=== PATIENT | female | born 1955 | race Caucasian/White ===

== ENCOUNTER 2020-12-18 20:40 | Observation (INO) | payer MEDICARE ==
--- NOTE | 2020-12-18 21:15 | EDM.PDOC ---
ED HPI GENERAL MEDICAL PROBLEM - General Chief Complaint: Lower Extremity Injury/Pain Stated Complaint: [facility] Time Seen by Provider: 12/18/20 21:00 Source of Information: Reports: Patient, EMS History Limitations: Reports: No Limitations - History of Present Illness INITIAL COMMENTS - FREE TEXT/NARRATIVE: 65-year-old female with a left leg injury. Her stumbled earlier this evening falling on top of her and landing on her left knee. She has been unable to bear weight since. No other injury Onset: Sudden (5 PM, 4 hours ago) Left Knee Pain Score (Numeric/FACES): 10 - Related Data Allergies Allergy/AdvReac Type Severity Reaction Status Date / Time No Known Allergies Allergy Verified 12/18/20 20:45 Home Meds: Home Meds DULoxetine HCl [Duloxetine HCl] 90 mg PO DAILY 12/18/20 [History] Hydroxychloroquine Sulfate [Plaquenil] 200 mg PO DAILY 12/18/20 [History] Methotrexate 200 mg PO Q7D 12/18/20 [History] Prazosin HCl [Prazosin] 4 mg PO BEDTIME 12/18/20 [History] Zolpidem [Ambien] 10 mg PO BEDTIME PRN 12/18/20 [History] buPROPion HCL [Bupropion Xl] 450 mg PO DAILY 12/18/20 [History] busPIRone HCl [busPIRone] 30 mg PO BID 12/18/20 [History] traMADol [Ultram] 50 mg PO TID PRN 12/18/20 [History] Past Medical History HEENT History: Reports: Hard of Hearing 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: , 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 Musculoskeletal History: Reports: Other (See Below) Other Musculoskeletal History: Inflammatory arthritis Psychiatric History: Reports: Anxiety, Depression Oncologic (Cancer) History: Reports: Squamous Cell Carcinoma - Past Surgical History Female Surgical History: Reports: Section Musculoskeletal Surgical History: Reports: Other (See Below) Other Musculoskeletal Surgeries/Procedures:: titianum joints x3 in l fingers Dermatological Surgical History: Reports: Skin Biopsy Social & Family History - Tobacco Use Tobacco Use Status *Q: Never Tobacco User Second Hand Smoke Exposure: No - Caffeine Use Caffeine Use: Reports: Coffee - Recreational Drug Use Recreational Drug Use: No Review of Systems - Review of Systems Review Of Systems: See Below Constitutional: Denies: Fever Respiratory: Denies: Shortness of Breath Cardiovascular: Denies: Chest Pain GI/Abdominal: Denies: Abdominal Pain, Nausea, Vomiting Musculoskeletal: Reports: Leg Pain Skin: Denies: Bruising Neurological: Denies: Paresthesia ED EXAM, GENERAL - Physical Exam Exam: See Below Exam Limited By: No Limitations General Appearance: Alert, No Apparent Distress (Looks uncomfortable but not distressed) Head: Atraumatic Neck: Supple, Non-Tender Respiratory/Chest: No Respiratory Distress Extremities: Other (Exam is otherwise limited to the left lower leg. The hip is nontender, ankle is nontender. She has some palpation tenderness in the mid femur and exquisite tenderness to palpation over the lateral aspect of the knee. There is no deformity or significant bruising or swelling.) Course - Vital Signs Last Recorded V/S: Last Vital Signs Temp 95 F L 12/18/20 23:33 Pulse 70 12/18/20 23:33 Resp 18 12/18/20 23:33 BP 135/61 12/18/20 23:33 Pulse Ox 93 L 12/18/20 23:33 - Orders/Labs/Meds Orders: Active Orders 24 hr Category Date Time Status Femur Min 2V Lt [CR] Stat Exams 12/18/20 21:09 Taken Knee 3V Lt [CR] Stat Exams 12/18/20 21:09 Taken Medication Orders Acetaminophen (Acetaminophen 325 Mg Tab) 650 mg PO Q4H PRN PRN Reason: Pain (Mild 1-3)/fever Albuterol (Albuterol 0.083% 2.5 Mg/3 Ml Neb Soln) 2.5 mg NEB Q4H PRN PRN Reason: Shortness Of Breath/wheezing Bupropion HCl (Bupropion 150 Mg Tab.Er) 450 mg PO DAILY TAIWO Buspirone HCl (Buspirone 10 Mg Tab) 30 mg PO BID [facility] Last Admin: 12/19/20 00:19 Dose: Not Given Documented by: BEE Docusate Sodium (Docusate Sodium 100 Mg Cap) 100 mg PO BID PRN PRN Reason: Constipation Duloxetine HCl (Duloxetine 30 Mg Cap) 90 mg PO DAILY TAIWO Hydromorphone HCl (Hydromorphone 1 Mg/Ml Syringe) 1 mg IVPUSH Q3H PRN PRN Reason: Pain (severe 7-10) Hydroxychloroquine Sulfate (Hydroxychloroquine 200 Mg Tab) 200 mg PO DAILY TAIWO Sodium Chloride (Normal Saline) 1,000 mls @ 125 mls/hr IV ASDIRECTED TAIWO Ondansetron HCl (Ondansetron 4 Mg Tab.Dis) 4 mg PO Q6H PRN PRN Reason: Nausea able to take PO Ondansetron HCl (Ondansetron 4 Mg/2 Ml Sdv) 4 mg IV Q4H PRN PRN Reason: Nausea/Vomiting Oxycodone HCl (Oxycodone 5 Mg Tab) 5 mg PO Q4H PRN PRN Reason: Pain (moderate 4-6) Prazosin HCl (Prazosin 1 Mg Cap) 4 mg PO BEDTIME TAIWO Meds: Medications Generic Name Dose Route Start Last Admin Trade Name Freq PRN Reason Stop Dose Admin Acetaminophen 650 mg 12/18/20 23:45 Acetaminophen 325 Mg Tab PO Q4H PRN Pain (Mild 1-3)/fever Albuterol 2.5 mg 12/18/20 23:45 Albuterol 0.083% 2.5 Mg/3 Ml Neb Soln NEB Q4H PRN Shortness Of Breath/wheezing Bupropion HCl 450 mg 12/19/20 09:00 Bupropion 150 Mg Tab.Er PO DAILY [facility] Buspirone HCl 30 mg 12/18/20 23:45 12/19/20 00:19 Buspirone 10 Mg Tab PO Not Given BID TAIWO Docusate Sodium 100 mg 12/18/20 23:45 Docusate Sodium 100 Mg Cap PO BID PRN Constipation Duloxetine HCl 90 mg 12/19/20 09:00 Duloxetine 30 Mg Cap PO DAILY [facility] Hydromorphone HCl 1 mg 12/18/20 23:45 Hydromorphone 1 Mg/Ml Syringe IVPUSH Q3H PRN Pain (severe 7-10) Hydroxychloroquine Sulfate 200 mg 12/19/20 09:00 Hydroxychloroquine 200 Mg Tab PO DAILY [facility] Sodium Chloride 1,000 mls @ 125 mls/hr 12/18/20 23:45 Normal Saline IV ASDIRECTED TAIWO Ondansetron HCl 4 mg 12/18/20 23:45 Ondansetron 4 Mg Tab.Dis PO Q6H PRN Nausea able to take PO Ondansetron HCl 4 mg 12/18/20 23:45 Ondansetron 4 Mg/2 Ml Sdv IV Q4H PRN Nausea/Vomiting Oxycodone HCl 5 mg 12/18/20 23:45 Oxycodone 5 Mg Tab PO Q4H PRN Pain (moderate 4-6) Prazosin HCl 4 mg 12/19/20 21:00 Prazosin 1 Mg Cap PO BEDTIME TAIWO Discontinued Medications Generic Name Dose Route Start Last Admin Trade Name Freq PRN Reason Stop Dose Admin Hydromorphone HCl 0.5 mg 12/18/20 21:19 12/18/20 21:25 Hydromorphone 0.5 Mg/0.5 Ml Syringe IVPUSH 12/18/20 21:20 0.5 mg ONETIME ONE Administration Hydromorphone HCl 1 mg 12/18/20 22:31 12/18/20 22:38 Hydromorphone 1 Mg/Ml Syringe IVPUSH 12/18/20 22:32 1 mg ONETIME ONE Administration Pantoprazole Sodium 40 mg 12/18/20 23:45 Pantoprazole 40 Mg Vial IV 12/18/20 23:46 ONETIME ONE - Re-Assessments/Exams Free Text/Narrative Re-Assessment/Exam: 12/18/20 21:29 An x-ray of the left knee and left femur were obtained. 12/18/20 22:05 X-ray shows a likely diagonal fracture of the lateral tibia extending into the tibial plateau. She cannot move her knee, she cannot bear weight. After discussing this with orthopedics, it was recommended she be admitted and have further evaluation tomorrow with a CT scan and a physical therapy consult the surgery is not indicated. Areli Azul agreed to admit the patient. Departure - Departure Time of Disposition: 23:49 Disposition: Admitted As Inpatient 64 Clinical Impression: Fracture of tibial plateau - Discharge Information Sepsis Event Note (ED) - Evaluation Sepsis Screening Result: No Definite Risk - Focused Exam Vital Signs: Vital Signs Temp Pulse Resp BP Pulse Ox 12/18/20 22:30 97.2 F 64 16 156/62 H 95 12/18/20 21:02 97.1 F 65 16 158/69 H 95 12/18/20 20:42 97.1 F 65 16 158/69 H 95 - My Orders Last 24 Hours: My Active Orders 12/18/20 21:09 Femur Min 2V Lt [CR] Stat Knee 3V Lt [CR] Stat - Assessment/Plan Last 24 Hours: My Active Orders 12/18/20 21:09 Femur Min 2V Lt [CR] Stat Knee 3V Lt [CR] Stat
[2020-12-18] MEDS ORDERED: HYDROmorphone 0.5 MG/0.5 ML Syringe IVPUSH ONE (21:19)
[2020-12-18] MEDS ORDERED: HYDROmorphone 1 MG/ML Syringe IVPUSH ONE (22:31)
--- NOTE | 2020-12-18 23:37 | PCM.HP.2 ---
H&P History of Present Illness - General Date of Service: 12/18/20 Admit Problem/Dx: Admission Diagnosis/Problem Admission Diagnosis/Problem Fracture of left tibial plateau Source of Information: Patient, Provider, RN History Limitations: Reports: No Limitations - History of Present Illness Initial Comments - Free Text/Narative: chief complaint: left leg pain secondary to fracture This is a 65 year old female at 5 pm today, her disabled fell on her injuring her left leg. Has been unable to bear wt due to pain, call EMS for transport to hospital. Xray shows a left tib plateau fracture. consult with Orthopedic Surgeon, recommends admission to hospital will consult in am. Onset of Symptoms: Reports: Today Symptom Onset Date: 12/18/20 Symptom Onset Time: 17:00 Duration of Symptoms: Reports: Constant Location: Reports: Lower Extremity, Left Quality: Reports: Pressure, Sharp Severity: Severe Improves with: Reports: Immobilization Worsens with: Reports: Movement Context: Reports: Other (another person falling on patieint) Left Knee Pain Score (Numeric/FACES): 8 - Related Data Allergies/Adverse Reactions: Allergies Allergy/AdvReac Type Severity Reaction Status Date / Time No Known Allergies Allergy Verified 12/18/20 20:45 Home Medications: Home Meds DULoxetine HCl [Duloxetine HCl] 90 mg PO DAILY 12/18/20 [History] Hydroxychloroquine Sulfate [Plaquenil] 200 mg PO DAILY 12/18/20 [History] Methotrexate 200 mg PO Q7D 12/18/20 [History] Prazosin HCl [Prazosin] 4 mg PO BEDTIME 12/18/20 [History] Zolpidem [Ambien] 10 mg PO BEDTIME PRN 12/18/20 [History] buPROPion HCL [Bupropion Xl] 450 mg PO DAILY 12/18/20 [History] busPIRone HCl [busPIRone] 30 mg PO BID 12/18/20 [History] traMADol [Ultram] 50 mg PO TID PRN 12/18/20 [History] Past Medical History HEENT History: Reports: Hard of Hearing 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: , 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 Musculoskeletal History: Reports: Other (See Below) Other Musculoskeletal History: Inflammatory arthritis Psychiatric History: Reports: Anxiety, Depression Oncologic (Cancer) History: Reports: Squamous Cell Carcinoma - Past Surgical History Female Surgical History: Reports: Section Musculoskeletal Surgical History: Reports: Other (See Below) Other Musculoskeletal Surgeries/Procedures:: titianum joints x3 in l fingers Dermatological Surgical History: Reports: Skin Biopsy Social & Family History - Tobacco Use Tobacco Use Status *Q: Never Tobacco User Second Hand Smoke Exposure: No - Caffeine Use Caffeine Use: Reports: Coffee - Recreational Drug Use Recreational Drug Use: No - Living Situation & Occupation Living situation: Reports: Occupation: Employed H&P Review of Systems - Review of Systems: Review Of Systems: See Below General: Reports: Other (left leg pain) HEENT: Reports: No Symptoms Pulmonary: Reports: No Symptoms Cardiovascular: Reports: No Symptoms Gastrointestinal: Reports: No Symptoms Genitourinary: Reports: No Symptoms Musculoskeletal: Reports: Leg Pain Skin: Reports: No Symptoms Psychiatric: Reports: No Symptoms Neurological: Reports: No Symptoms Hematologic/Lymphatic: Reports: No Symptoms Immunologic: Reports: No Symptoms Exam - Exam Exam: See Below - Vital Signs Vital Signs: Last Vital Signs Temp 36.2 C 12/18/20 22:30 Pulse 64 12/18/20 22:30 Resp 16 12/18/20 22:30 BP 156/62 H 12/18/20 22:30 Pulse Ox 95 12/18/20 22:30 Weight: 71.668 kg - Exam General: Alert, Oriented, Cooperative, Moderate Distress HEENT: PERRLA, Hearing Intact, Mucosa Moist & [place], Nares Patent, Normal Nasal Septum, Posterior Pharynx Clear, Conjunctiva Clear, EOMI, EACs Clear, TMs Clear Neck: Supple, Trachea Midline, 2 Lungs: Clear to Auscultation, Normal Respiratory Effort Cardiovascular: Regular Rate, Regular Rhythm GI/Abdominal Exam: Normal Bowel Sounds, Soft, Non-Tender, No Organomegaly, No Distention, No Abnormal Bruit, No Mass, Pelvis Stable (Female) Exam: Deferred Rectal (Female) Exam: Deferred Back Exam: Normal Inspection, Full Range of Motion, NT Extremities: Leg Pain Peripheral Pulses: 2+: Radial (L), Radial (R), Dorsalis Pedis (L), Dorsalis Pedis (R) Skin: Warm, Dry, Intact Neurological: Cranial Nerves Intact, Normal Speech, Normal Tone Neuro Extensive - Mental Status: Alert, Oriented x3, Normal Mood/Affect, Normal Cognition, Memory Intact Neuro Extensive - Motor, Sensory, Reflexes: CN II-XII Intact Psychiatric: Alert, Normal Affect, Normal Mood Sepsis Event Note - Evaluation Sepsis Screening Result: No Definite Risk - Focused Exam Vital Signs: Vital Signs Temp Pulse Resp BP Pulse Ox 12/18/20 22:30 36.2 C 64 16 156/62 H 95 12/18/20 21:02 36.2 C 65 16 158/69 H 95 12/18/20 20:42 36.2 C 65 16 158/69 H 95 - Problem List (1) Fracture of tibial plateau SNOMED Code(s): 672005949 ICD Code: S82.143A - DISPLACED BICONDYLAR FRACTURE OF UNSP TIBIA, INIT Status: Acute Priority: High Current Visit: Yes Problem List Initiated/Reviewed/Updated: Yes Orders Last 24hrs: Active Orders 24 hr Category Date Time Status Patient Status Manage Transfer [TRANSFER] Routine ADT 12/18/20 22:34 Active Femur Min 2V Lt [CR] Stat Exams 12/18/20 21:09 Taken Knee 3V Lt [CR] Stat Exams 12/18/20 21:09 Taken Resuscitation Status Routine Resus Stat 12/18/20 22:37 Ordered Assessment/Plan Comment:: ASSESSMENT AND PLAN This is a 65 year old female at 5 pm today, her disabled fell on her injuring her left leg. Has been unable to bear wt due to pain, call EMS for transport to hospital. Xray shows a left tib plateau fracture. consult with Orthopedic Surgeon, recommends admission to hospital will consult in am. Left Tibial plateau fracture -IV fluids Normal Saline 125ml/hr -IV Dilaudid 1 mg every 3 hours prn pain -Percocet 5mg po every 4 hours prn pain -pulse oximetry -consult to Dr. Casas for Orthopedic evaluation in am MAINTENANCE ISSUES -DVT prophylaxis; scd -GI prophylaxis; Protonix 40 mg IV one time -Rosario catheter; not indicated -Nutrition; regular diet then NPO after midnight -Nicotine dependence; not required CODE STATUS-FULL ADMISSION STATUS-this patient will be admitted to observation status, expect no more than a one night hospital stay for evaluation and management of problems as outlined above. DISPOSITION-anticipate discharge to home after the hospital stay. PRIMARY CARE PROVIDER-[facility] HOSPITALIST- Dr. Rivas - Mortality Measure Prognosis:: Good
[2020-12-18] MEDS ORDERED: Albuterol 0.083% 2.5 MG/3 ML Neb Soln NEB PRN (23:45)
[2020-12-18] MEDS ORDERED: Docusate Sodium 100 MG Cap PO PRN (23:45)
[2020-12-18] MEDS ORDERED: HYDROmorphone 1 MG/ML Syringe IVPUSH PRN (23:45)
[2020-12-18] MEDS ORDERED: Pantoprazole 40 MG Vial IV ONE (23:45)
[2020-12-19] MEDS: busPIRone 10 MG Tab PO SCH ×3 (00:19→21:07)
[2020-12-19] MEDS: Sodium Chloride 0.9% 1,000 ML IV SCH ×3 (00:24→16:57)
[2020-12-19] MEDS: oxyCODONE 5 MG Tab PO PRN ×6 (00:24→21:06)
[2020-12-19] MEDS: Acetaminophen 325 MG Tab PO PRN ×3 (00:24→21:06)
[2020-12-19] MEDS: Ondansetron 4 MG/2 ML SDV IV PRN (00:24)
[2020-12-19] MEDS: fentaNYL 100 MCG/2 ML SDV IVPUSH PRN ×2 (08:00→11:38)
--- NOTE | 2020-12-19 08:50 | CR ---
Femur Min 2V Lt, Knee 3V Lt CLINICAL HISTORY: Fall, pain FINDINGS: There is no acute fracture within the femur. No destructive changes are seen. IMPRESSION: Negative. Knee 3V Lt CLINICAL HISTORY: Fall, pain FINDINGS: There is a joint effusion. There is some irregular density in the lateral tibial plateau which may represent a slight impaction fracture. IMPRESSION: Nondisplaced impaction fracture of the lateral tibial plateau suggested Joint fluid may represent hemarthrosis.
[2020-12-19] MEDS: buPROPion 150 MG Tab.ER PO SCH (09:25)
[2020-12-19] MEDS: Hydroxychloroquine 200 MG Tab PO SCH (09:25)
[2020-12-19] MEDS: DULoxetine 30 MG Cap PO SCH (09:25)
--- NOTE | 2020-12-19 10:54 | CT ---
Lower Extremity wo Cont Lt CLINICAL HISTORY: Tibial fracture TECHNIQUE: Thin section axial images were obtained from the femoral condyles downward through the talus without IV contrast enhancement. Coronal and sagittal images were reconstructed. Auto dosage reduction and iterative reconstruction techniques employed. FINDINGS: There is a nondisplaced comminuted oblique fracture extending from the posterior lateral tibial plateau to the intercondylar eminence. There is some joint fluid but the upper knee is off the image margin. The fibula appears intact. Tibiotalar joint appears intact. IMPRESSION: Comminuted nondisplaced oblique fracture through the lateral tibial plateau extending to the intercondylar eminence.
[2020-12-19] MEDS ORDERED: Zolpidem 5 MG Tab PO PRN (11:00)
--- NOTE | 2020-12-19 11:08 | PCM.CONS ---
H&P History of Present Illness - General Date of Service: 12/19/20 Admit Problem/Dx: Admission Diagnosis/Problem Admission Diagnosis/Problem Fracture of left tibial plateau Source of Information: Patient, Provider History Limitations: Reports: No Limitations - History of Present Illness Initial Comments - Free Text/Narative: 65 year old female admitted through the ED with left knee pain. She reports her tripped and fell onto her left leg. She has been unable to weight bear on the leg since that time. No other injuries were sustained. Onset of Symptoms: Reports: Sudden Duration of Symptoms: Reports: Constant Location: Reports: Lower Extremity, Left Quality: Reports: Sharp, Stabbing Severity: Severe Improves with: Reports: Immobilization Worsens with: Reports: Movement Context: Reports: Trauma Associated Symptoms: Reports: No Other Symptoms Left Knee Pain Score (Numeric/FACES): 6 - Related Data Allergies/Adverse Reactions: Allergies Allergy/AdvReac Type Severity Reaction Status Date / Time No Known Allergies Allergy Verified 12/18/20 20:45 Home Medications: Home Meds DULoxetine HCl [Duloxetine HCl] 90 mg PO DAILY 12/18/20 [History] Hydroxychloroquine Sulfate [Plaquenil] 200 mg PO DAILY 12/18/20 [History] Methotrexate 200 mg PO Q7D 12/18/20 [History] Prazosin HCl [Prazosin] 4 mg PO BEDTIME 12/18/20 [History] Zolpidem [Ambien] 10 mg PO BEDTIME PRN 12/18/20 [History] buPROPion HCL [Bupropion Xl] 450 mg PO DAILY 12/18/20 [History] busPIRone HCl [busPIRone] 30 mg PO BID 12/18/20 [History] traMADol [Ultram] 50 mg PO TID PRN 12/18/20 [History] Past Medical History HEENT History: Reports: Hard of Hearing 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: , 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 Musculoskeletal History: Reports: Fracture, Other (See Below) Other Musculoskeletal History: Inflammatory arthritis Psychiatric History: Reports: Anxiety, Depression Oncologic (Cancer) History: Reports: Squamous Cell Carcinoma - Past Surgical History HEENT Surgical History: Reports: None Female Surgical History: Reports: Section Musculoskeletal Surgical History: Reports: Other (See Below) Other Musculoskeletal Surgeries/Procedures:: titianum joints x3 in l fingers Dermatological Surgical History: Reports: Skin Biopsy Social & Family History - Tobacco Use Tobacco Use Status *Q: Never Tobacco User Second Hand Smoke Exposure: No - Caffeine Use Caffeine Use: Reports: Coffee - Recreational Drug Use Recreational Drug Use: No - Living Situation & Occupation Living situation: Reports: Occupation: Employed H&P Review of Systems - Review of Systems: Review Of Systems: See Below General: Reports: No Symptoms Musculoskeletal: Reports: Leg Pain Skin: Reports: No Symptoms Neurological: Reports: No Symptoms Exam - Exam Exam: See Below - Vital Signs Vital Signs: Last Vital Signs Temp 36.3 C 12/19/20 07:15 Pulse 69 12/19/20 07:15 Resp 16 12/19/20 07:15 BP 108/51 L 12/19/20 07:15 Pulse Ox 96 12/19/20 07:15 Weight: 73.028 kg - Exam General: Alert, Oriented Extremities: Joint Swelling, Leg Pain, Limited Range of Motion, Other (Pain with attempted ROM of left knee) - Patient Data Lab Results Last 24 hrs: Laboratory Results - last 24 hr 12/19/20 12/19/20 Range/Units 04:15 04:15 WBC 7.6 (4.5-11.0) K/uL RBC 4.02 (3.30-5.50) M/uL Hgb 11.8 L (12.0-15.0) g/dL Hct 36.9 (36.0-48.0) % MCV 92 (80-98) fL MCH 29 (27-31) pg MCHC 32 (32-36) % Plt Count 163 (150-400) K/uL Neut % (Auto) 83 H (36-66) % Lymph % (Auto) 9 L (24-44) % [place] % (Auto) 8 H (2-6) % Eos % (Auto) 0 L (2-4) % Baso % (Auto) 0 (0-1) % Sodium 141 (140-148) mmol/L Potassium 4.1 (3.6-5.2) mmol/L Chloride 105 (100-108) mmol/L Carbon Dioxide 26 (21-32) mmol/L Anion Gap 10.4 (5.0-14.0) mmol/L BUN 13 (7-18) mg/dL Creatinine 0.7 (0.6-1.0) mg/dL Est Cr Clr Drug Dosing 61.68 mL/min Estimated GFR (MDRD) > 60 (>60) Glucose 126 H (74-106) mg/dL Calcium 8.4 L (8.5-10.1) mg/dL Result Diagrams: 12/19/20 04:15 12/19/20 04:15 Sepsis Event Note - Evaluation Sepsis Screening Result: No Definite Risk - Focused Exam Vital Signs: Vital Signs Temp Pulse Resp BP BP Pulse Ox 12/19/20 07:15 36.3 C 69 16 108/51 L 96 12/19/20 07:04 96 12/19/20 02:10 90 L 12/19/20 01:54 35.4 C L 67 16 116/66 93 L 12/19/20 00:24 135/61 12/18/20 23:33 35 C L 70 18 135/61 93 L Consult PN Assessment/Plan (1) Closed nondisplaced fracture of left tibial plateau SNOMED Code(s): 888648837, [id number] Code(s): S82.145A - NONDISPLACED BICONDYLAR FRACTURE OF LEFT TIBIA, INIT Current Visit: Yes Qualifiers: Encounter type: initial encounter Qualified Code(s): S82.145A - Nondisplaced bicondylar fracture of left tibia, initial encounter for closed fracture Problem List Initiated/Reviewed/Updated: Yes My Orders Last 24 Hours: My Active Orders 12/19/20 10:58 Ambulate [RC] QID Up to Chair [RC] QID Ice Therapy [OM.PC] Per Unit Routine 12/19/20 10:59 PT Evaluation and Treatment [CONS] Routine 12/19/20 11:00 Zolpidem [Ambien] 10 mg PO BEDTIME PRN 12/19/20 Lunch Regular Diet [DIET] Plan: Nondisplaced fracture of left tibial plateau. No surgery indicated. She will have be minimally weight bearing on the left and currently has limited mobility. PT to see for attempt at ambulation. Will get her into a hinged knee brace and see what else she may need for home, e.g. walker, wheelchair, etc. Anticipate her going home in next day or so.
--- NOTE | 2020-12-19 12:44 | PCM.PN ---
- General Info Date of Service: 12/19/20 Admission Dx/Problem (Free Text): Admission Diagnosis/Problem Admission Diagnosis/Problem Fracture of left tibial plateau Subjective Update: Patient reports pain of her left lower extremity is reasonably well controlled at rest. Orthopedics has evaluated and no surgery is indicated. The patient will be placed in a hinged knee brace with PT evaluation for recommendations regarding mobility. The patient does want to return home if possible long hospitalization. Functional Status: Reports: Pain Controlled - Review of Systems General: Reports: No Symptoms HEENT: Reports: No Symptoms Pulmonary: Reports: No Symptoms Cardiovascular: Reports: No Symptoms Gastrointestinal: Reports: No Symptoms Genitourinary: Reports: No Symptoms Musculoskeletal: Reports: Leg Pain Skin: Reports: No Symptoms Neurological: Reports: No Symptoms Psychiatric: Reports: No Symptoms - Patient Data Vitals - Most Recent: Last Vital Signs Temp 97.0 F 12/19/20 11:20 Pulse 65 12/19/20 11:20 Resp 18 12/19/20 11:20 BP 113/50 L 12/19/20 11:20 Pulse Ox 92 L 12/19/20 11:20 Weight - Most Recent: 161 lb I&O - Last 24 Hours: Intake & Output 12/18/20 12/19/20 12/19/20 22:59 06:59 14:59 Output Total 700 Balance -700 Lab Results Last 24 Hours: Laboratory Results - last 24 hr 12/19/20 12/19/20 Range/Units 04:15 04:15 WBC 7.6 (4.5-11.0) K/uL RBC 4.02 (3.30-5.50) M/uL Hgb 11.8 L (12.0-15.0) g/dL Hct 36.9 (36.0-48.0) % MCV 92 (80-98) fL MCH 29 (27-31) pg MCHC 32 (32-36) % Plt Count 163 (150-400) K/uL Neut % (Auto) 83 H (36-66) % Lymph % (Auto) 9 L (24-44) % [place] % (Auto) 8 H (2-6) % Eos % (Auto) 0 L (2-4) % Baso % (Auto) 0 (0-1) % Sodium 141 (140-148) mmol/L Potassium 4.1 (3.6-5.2) mmol/L Chloride 105 (100-108) mmol/L Carbon Dioxide 26 (21-32) mmol/L Anion Gap 10.4 (5.0-14.0) mmol/L BUN 13 (7-18) mg/dL Creatinine 0.7 (0.6-1.0) mg/dL Est Cr Clr Drug Dosing 61.68 mL/min Estimated GFR (MDRD) > 60 (>60) Glucose 126 H (74-106) mg/dL Calcium 8.4 L (8.5-10.1) mg/dL Med Orders - Current: Current Medications Acetaminophen (Acetaminophen 325 Mg Tab) 650 mg PO Q4H PRN PRN Reason: Pain (Mild 1-3)/fever Last Admin: 12/19/20 06:34 Dose: 650 mg Documented by: Albuterol (Albuterol 0.083% 2.5 Mg/3 Ml Neb Soln) 2.5 mg NEB Q4H PRN PRN Reason: Shortness Of Breath/wheezing Bupropion HCl (Bupropion 150 Mg Tab.Er) 450 mg PO DAILY [facility] Last Admin: 12/19/20 09:25 Dose: Not Given Documented by: Buspirone HCl (Buspirone 10 Mg Tab) 30 mg PO BID [facility] Last Admin: 12/19/20 09:25 Dose: Not Given Documented by: Docusate Sodium (Docusate Sodium 100 Mg Cap) 100 mg PO BID PRN PRN Reason: Constipation Duloxetine HCl (Duloxetine 30 Mg Cap) 90 mg PO DAILY [facility] Last Admin: 12/19/20 09:25 Dose: Not Given Documented by: Fentanyl (Fentanyl 100 Mcg/2 Ml Sdv) 50 mcg IVPUSH Q4H PRN PRN Reason: Pain (severe 7-10) Last Admin: 12/19/20 11:38 Dose: 50 mcg Documented by: Hydromorphone HCl (Hydromorphone 1 Mg/Ml Syringe) 1 mg IVPUSH Q3H PRN PRN Reason: Pain (severe 7-10) Hydroxychloroquine Sulfate (Hydroxychloroquine 200 Mg Tab) 200 mg PO DAILY [facility] Last Admin: 12/19/20 09:25 Dose: Not Given Documented by: Sodium Chloride (Normal Saline) 1,000 mls @ 125 mls/hr IV ASDIRECTED [facility] Last Admin: 12/19/20 07:59 Dose: 125 mls/hr Documented by: Ondansetron HCl (Ondansetron 4 Mg Tab.Dis) 4 mg PO Q6H PRN PRN Reason: Nausea able to take PO Ondansetron HCl (Ondansetron 4 Mg/2 Ml Sdv) 4 mg IV Q4H PRN PRN Reason: Nausea/Vomiting Last Admin: 12/19/20 00:24 Dose: 4 mg Documented by: Oxycodone HCl (Oxycodone 5 Mg Tab) 5 mg PO Q4H PRN PRN Reason: Pain (moderate 4-6) Last Admin: 12/19/20 06:34 Dose: 5 mg Documented by: Prazosin 2mg Cap ( (Ptom)) 0 each PO BEDTIME [facility] Zolpidem Tartrate (Zolpidem 5 Mg Tab) 10 mg PO BEDTIME PRN PRN Reason: Insomnia Discontinued Medications Hydromorphone HCl (Hydromorphone 0.5 Mg/0.5 Ml Syringe) 0.5 mg IVPUSH ONETIME ONE Stop: 12/18/20 21:20 Last Admin: 12/18/20 21:25 Dose: 0.5 mg Documented by: Hydromorphone HCl (Hydromorphone 1 Mg/Ml Syringe) 1 mg IVPUSH ONETIME ONE Stop: 12/18/20 22:32 Last Admin: 12/18/20 22:38 Dose: 1 mg Documented by: Pantoprazole Sodium (Pantoprazole 40 Mg Vial) 40 mg IV ONETIME ONE Stop: 12/18/20 23:46 Last Admin: 12/19/20 00:24 Dose: 40 mg Documented by: Prazosin HCl (Prazosin 1 Mg Cap) 4 mg PO BEDTIME [facility] Last Admin: 12/19/20 00:24 Dose: 4 mg Documented by: - Exam General: Alert, Oriented, Cooperative HEENT: No: Scleral Icterus Neck: Supple, Trachea Midline Lungs: Clear to Auscultation Cardiovascular: Regular Rate GI/Abdominal Exam: Soft, Non-Tender Extremities: Leg Pain Skin: Warm, Dry Neurological: No New Focal Deficit Psy/Mental Status: Alert, Normal Affect, Normal Mood - Patient Data Lab Results Last 24 hrs: Laboratory Results - last 24 hr 12/19/20 12/19/20 Range/Units 04:15 04:15 WBC 7.6 (4.5-11.0) K/uL RBC 4.02 (3.30-5.50) M/uL Hgb 11.8 L (12.0-15.0) g/dL Hct 36.9 (36.0-48.0) % MCV 92 (80-98) fL MCH 29 (27-31) pg MCHC 32 (32-36) % Plt Count 163 (150-400) K/uL Neut % (Auto) 83 H (36-66) % Lymph % (Auto) 9 L (24-44) % [place] % (Auto) 8 H (2-6) % Eos % (Auto) 0 L (2-4) % Baso % (Auto) 0 (0-1) % Sodium 141 (140-148) mmol/L Potassium 4.1 (3.6-5.2) mmol/L Chloride 105 (100-108) mmol/L Carbon Dioxide 26 (21-32) mmol/L Anion Gap 10.4 (5.0-14.0) mmol/L BUN 13 (7-18) mg/dL Creatinine 0.7 (0.6-1.0) mg/dL Est Cr Clr Drug Dosing 61.68 mL/min Estimated GFR (MDRD) > 60 (>60) Glucose 126 H (74-106) mg/dL Calcium 8.4 L (8.5-10.1) mg/dL Result Diagrams: 12/19/20 04:15 12/19/20 04:15 Sepsis Event Note - Evaluation Sepsis Screening Result: No Definite Risk - Focused Exam Vital Signs: Vital Signs Temp Pulse Resp BP Pulse Ox 12/19/20 11:20 97.0 F 65 18 113/50 L 92 L 12/19/20 07:15 97.4 F 69 16 108/51 L 96 12/19/20 07:04 96 12/19/20 02:10 90 L 12/19/20 01:54 95.7 F L 67 16 116/66 93 L - Problem List Review Problem List Initiated/Reviewed/Updated: Yes - Assessment Assessment:: Left tibial plateau fracture - Plan Plan:: LEFT TIBIAL PLATEAU FRACTURE CT confirms comminuted oblique nondisplaced left tibial plateau fracture Advance diet as tolerated is no surgery is indicated Fentanyl if needed for pain. Requested oral pain medications that the patient may be able to continue at home. DVT PROPHYLAXIS Continue activity as tolerated DISPOSITION-continue observation today. Per orthopedics, presume patient will likely be ready for discharge in the next day or so [facility]
[2020-12-19] MEDS ORDERED: Prazosin 1 MG Cap PO SCH (21:00)
[2020-12-19] MEDS: PRAZOSIN 2 MG PO SCH (21:07)
[2020-12-20] MEDS: Acetaminophen 325 MG Tab PO PRN ×3 (00:59→13:24)
[2020-12-20] MEDS: oxyCODONE 5 MG Tab PO PRN ×4 (00:59→20:07)
[2020-12-20] MEDS: Sodium Chloride 0.9% 1,000 ML IV SCH (01:00)
[2020-12-20] MEDS: Hydroxychloroquine 200 MG Tab PO SCH (10:55)
[2020-12-20] MEDS: DULoxetine 30 MG Cap PO SCH ×2 (10:55→16:38)
[2020-12-20] MEDS: buPROPion 150 MG Tab.ER PO SCH ×2 (10:55→16:38)
[2020-12-20] MEDS: busPIRone 10 MG Tab PO SCH ×2 (10:55→21:24)
--- NOTE | 2020-12-20 13:04 | PCM.CONSN ---
- General Info Date of Service: 12/20/20 Admission Dx/Problem (Free Text): L non-displaced tibial plateau fracture Functional Status: Reports: Tolerating Diet, Urinating - Review of Systems General: Reports: No Symptoms HEENT: Reports: No Symptoms Pulmonary: Reports: No Symptoms Cardiovascular: Reports: No Symptoms Gastrointestinal: Reports: No Symptoms Genitourinary: Reports: No Symptoms Musculoskeletal: Reports: Leg Pain, Joint Pain (L knee ) Skin: Reports: No Symptoms Neurological: Reports: No Symptoms Psychiatric: Reports: No Symptoms - Patient Data Vitals - Most Recent: Last Vital Signs Temp 97.4 F 12/20/20 10:39 Pulse 63 12/20/20 10:39 Resp 16 12/20/20 10:39 BP 103/54 L 12/20/20 10:39 Pulse Ox 92 L 12/20/20 10:39 Weight - Most Recent: 161 lb I&O - Last 24 Hours: Intake & Output 12/19/20 12/20/20 12/20/20 22:59 06:59 14:59 Intake Total 1063 686 Output Total 500 Balance 1063 -500 686 Med Orders - Current: Current Medications Acetaminophen (Acetaminophen 325 Mg Tab) 650 mg PO Q4H PRN PRN Reason: Pain (Mild 1-3)/fever Last Admin: 12/20/20 08:41 Dose: 650 mg Documented by: Albuterol (Albuterol 0.083% 2.5 Mg/3 Ml Neb Soln) 2.5 mg NEB Q4H PRN PRN Reason: Shortness Of Breath/wheezing Bupropion HCl (Bupropion 150 Mg Tab.Er) 450 mg PO DAILY [facility] Last Admin: 12/20/20 10:55 Dose: Not Given Documented by: Buspirone HCl (Buspirone 10 Mg Tab) 30 mg PO BID [facility] Last Admin: 12/20/20 10:55 Dose: Not Given Documented by: Docusate Sodium (Docusate Sodium 100 Mg Cap) 100 mg PO BID PRN PRN Reason: Constipation Duloxetine HCl (Duloxetine 30 Mg Cap) 90 mg PO DAILY [facility] Last Admin: 12/20/20 10:55 Dose: Not Given Documented by: Fentanyl (Fentanyl 100 Mcg/2 Ml Sdv) 50 mcg IVPUSH Q4H PRN PRN Reason: Pain (severe 7-10) Last Admin: 12/19/20 11:38 Dose: 50 mcg Documented by: Hydroxychloroquine Sulfate (Hydroxychloroquine 200 Mg Tab) 200 mg PO DAILY [facility] Last Admin: 12/20/20 10:55 Dose: Not Given Documented by: Ondansetron HCl (Ondansetron 4 Mg Tab.Dis) 4 mg PO Q6H PRN PRN Reason: Nausea able to take PO Ondansetron HCl (Ondansetron 4 Mg/2 Ml Sdv) 4 mg IV Q4H PRN PRN Reason: Nausea/Vomiting Last Admin: 12/19/20 00:24 Dose: 4 mg Documented by: Oxycodone HCl (Oxycodone 5 Mg Tab) 5 mg PO Q4H PRN PRN Reason: Pain (moderate 4-6) Last Admin: 12/19/20 06:34 Dose: 5 mg Documented by: Oxycodone HCl (Oxycodone 5 Mg Tab) 10 mg PO Q4H PRN PRN Reason: Pain (severe 7-10) Last Admin: 12/20/20 08:41 Dose: 10 mg Documented by: Prazosin 2mg Cap ( (Ptom)) 0 each PO BEDTIME [facility] Last Admin: 12/19/20 21:07 Dose: 1 each Documented by: Zolpidem Tartrate (Zolpidem 5 Mg Tab) 10 mg PO BEDTIME PRN PRN Reason: Insomnia Discontinued Medications Hydromorphone HCl (Hydromorphone 0.5 Mg/0.5 Ml Syringe) 0.5 mg IVPUSH ONETIME ONE Stop: 12/18/20 21:20 Last Admin: 12/18/20 21:25 Dose: 0.5 mg Documented by: Hydromorphone HCl (Hydromorphone 1 Mg/Ml Syringe) 1 mg IVPUSH ONETIME ONE Stop: 12/18/20 22:32 Last Admin: 12/18/20 22:38 Dose: 1 mg Documented by: Hydromorphone HCl (Hydromorphone 1 Mg/Ml Syringe) 1 mg IVPUSH Q3H PRN PRN Reason: Pain (severe 7-10) Sodium Chloride (Normal Saline) 1,000 mls @ 125 mls/hr IV ASDIRECTED [facility] Last Admin: 12/20/20 01:00 Dose: 125 mls/hr Documented by: Pantoprazole Sodium (Pantoprazole 40 Mg Vial) 40 mg IV ONETIME ONE Stop: 12/18/20 23:46 Last Admin: 12/19/20 00:24 Dose: 40 mg Documented by: Prazosin HCl (Prazosin 1 Mg Cap) 4 mg PO BEDTIME [facility] Last Admin: 12/19/20 00:24 Dose: 4 mg Documented by: - Exam Quality Assessment: DVT Prophylaxis (SCDs ) General: Alert, Oriented, Cooperative, Mild Distress Extremities: Joint Swelling (left knee ), Leg Pain (left ), Limited Range of Motion Skin: Dry, Intact Neurological: No New Focal Deficit Psy/Mental Status: Alert, Normal Affect, Normal Mood Sepsis Event Note - Evaluation Sepsis Screening Result: No Definite Risk - Focused Exam Vital Signs: Vital Signs Temp Pulse Resp BP Pulse Ox 12/20/20 10:39 97.4 F 63 16 103/54 L 92 L 12/20/20 07:03 96.9 F 70 16 92/45 L 90 L 12/20/20 02:00 98.2 F 75 16 103/43 L 90 L Consult PN Assessment/Plan (1) Tibial plateau fracture, left SNOMED Code(s): 153042072, [id number] Code(s): S82.142A - DISPLACED BICONDYLAR FRACTURE OF LEFT TIBIA, INIT C urrent Visit: Yes Qualifiers: Fracture type: closed Problem List Initiated/Reviewed/Updated: Yes Plan: Patient is a pleasant 65 y/o female; fell on her on 12/18/20, and she sustained a left non-displaced tibial plateau fracture. Patient does not require surgery, but was admitted for pain management and therapy services. Patient has been placed in a hinged-extension knee brace for L knee immobilization. Tolerating regular diet well with no nausea/emesis. Patient has been hypotensive, but patient reports her BP is normally with systolic in the 90-100 range. Patient denied dizziness, lightheadedness, or fatigue. Pain has been a limiting factor in progression with ambulation status. Patient has participated in PT daily; is struggling with ambulation and transferring L leg into and out of bed. Exam: L knee with modest edema. Pain to palpation of L knee joint. Distal LE neurovascular intact. Plan: * Continue with PT services daily while in the hospital * SCDs applied to bilateral LE this morning for mechanical DVT prophylaxis * Pain to be controlled with PO medications prior to discharge * Order sent for wheelchair, as patient is unable to ambulate safely at this time with crutches or FWW * Anticipate discharge tomorrow to home with home health services, pending pain controlled with PO medications and progression with PT services
--- NOTE | 2020-12-20 13:05 | PCM.PN ---
- General Info Date of Service: 12/20/20 Subjective Update: No acute events overnight. Still having some spasm-like pain in the leg but overall her pain control is better. No complaints of shortness of breath or nausea. Slept a little better last night. Working with physical therapy. Working with family to get appropriate equipment and help at home after hospital discharge. Functional Status: Reports: Pain Controlled, Tolerating Diet - Review of Systems Musculoskeletal: Reports: Leg Pain - Patient Data Vitals - Most Recent: Last Vital Signs Temp 36.3 C 12/20/20 10:39 Pulse 63 12/20/20 10:39 Resp 16 12/20/20 10:39 BP 103/54 L 12/20/20 10:39 Pulse Ox 92 L 12/20/20 10:39 Weight - Most Recent: 73.028 kg I&O - Last 24 Hours: Intake & Output 12/19/20 12/20/20 12/20/20 22:59 06:59 14:59 Intake Total 1063 686 Output Total 500 Balance 1063 -500 686 Med Orders - Current: Current Medications Acetaminophen (Acetaminophen 325 Mg Tab) 650 mg PO Q4H PRN PRN Reason: Pain (Mild 1-3)/fever Last Admin: 12/20/20 08:41 Dose: 650 mg Documented by: Albuterol (Albuterol 0.083% 2.5 Mg/3 Ml Neb Soln) 2.5 mg NEB Q4H PRN PRN Reason: Shortness Of Breath/wheezing Bupropion HCl (Bupropion 150 Mg Tab.Er) 450 mg PO DAILY [facility] Last Admin: 12/20/20 10:55 Dose: Not Given Documented by: Buspirone HCl (Buspirone 10 Mg Tab) 30 mg PO BID [facility] Last Admin: 12/20/20 10:55 Dose: Not Given Documented by: Docusate Sodium (Docusate Sodium 100 Mg Cap) 100 mg PO BID PRN PRN Reason: Constipation Duloxetine HCl (Duloxetine 30 Mg Cap) 90 mg PO DAILY [facility] Last Admin: 12/20/20 10:55 Dose: Not Given Documented by: Fentanyl (Fentanyl 100 Mcg/2 Ml Sdv) 50 mcg IVPUSH Q4H PRN PRN Reason: Pain (severe 7-10) Last Admin: 12/19/20 11:38 Dose: 50 mcg Documented by: Hydroxychloroquine Sulfate (Hydroxychloroquine 200 Mg Tab) 200 mg PO DAILY [facility] Last Admin: 12/20/20 10:55 Dose: Not Given Documented by: Ondansetron HCl (Ondansetron 4 Mg Tab.Dis) 4 mg PO Q6H PRN PRN Reason: Nausea able to take PO Ondansetron HCl (Ondansetron 4 Mg/2 Ml Sdv) 4 mg IV Q4H PRN PRN Reason: Nausea/Vomiting Last Admin: 12/19/20 00:24 Dose: 4 mg Documented by: Oxycodone HCl (Oxycodone 5 Mg Tab) 5 mg PO Q4H PRN PRN Reason: Pain (moderate 4-6) Last Admin: 12/19/20 06:34 Dose: 5 mg Documented by: Oxycodone HCl (Oxycodone 5 Mg Tab) 10 mg PO Q4H PRN PRN Reason: Pain (severe 7-10) Last Admin: 12/20/20 08:41 Dose: 10 mg Documented by: Prazosin 2mg Cap ( (Ptom)) 0 each PO BEDTIME [facility] Last Admin: 12/19/20 21:07 Dose: 1 each Documented by: Zolpidem Tartrate (Zolpidem 5 Mg Tab) 10 mg PO BEDTIME PRN PRN Reason: Insomnia Discontinued Medications Hydromorphone HCl (Hydromorphone 0.5 Mg/0.5 Ml Syringe) 0.5 mg IVPUSH ONETIME ONE Stop: 12/18/20 21:20 Last Admin: 12/18/20 21:25 Dose: 0.5 mg Documented by: Hydromorphone HCl (Hydromorphone 1 Mg/Ml Syringe) 1 mg IVPUSH ONETIME ONE Stop: 12/18/20 22:32 Last Admin: 12/18/20 22:38 Dose: 1 mg Documented by: Hydromorphone HCl (Hydromorphone 1 Mg/Ml Syringe) 1 mg IVPUSH Q3H PRN PRN Reason: Pain (severe 7-10) Sodium Chloride (Normal Saline) 1,000 mls @ 125 mls/hr IV ASDIRECTED [facility] Last Admin: 12/20/20 01:00 Dose: 125 mls/hr Documented by: Pantoprazole Sodium (Pantoprazole 40 Mg Vial) 40 mg IV ONETIME ONE Stop: 12/18/20 23:46 Last Admin: 12/19/20 00:24 Dose: 40 mg Documented by: Prazosin HCl (Prazosin 1 Mg Cap) 4 mg PO BEDTIME [facility] Last Admin: 12/19/20 00:24 Dose: 4 mg Documented by: - Exam Quality Assessment: No: Supplemental Oxygen General: Alert, Oriented, Cooperative, No Acute Distress Lungs: Normal Respiratory Effort GI/Abdominal Exam: Soft, No Distention Psy/Mental Status: Alert, Normal Affect - Patient Data Result Diagrams: 12/19/20 04:15 12/19/20 04:15 Sepsis Event Note - Evaluation Sepsis Screening Result: No Definite Risk - Focused Exam Vital Signs: Vital Signs Temp Pulse Resp BP Pulse Ox 12/20/20 10:39 36.3 C 63 16 103/54 L 92 L 12/20/20 07:03 36.1 C 70 16 92/45 L 90 L 12/20/20 02:00 36.8 C 75 16 103/43 L 90 L - Problem List Review Problem List Initiated/Reviewed/Updated: Yes - Plan Plan:: ASSESSMENT AND PLAN - LEFT TIBIAL PLATEAU FRACTURE-surgery not indicated. Pain control improving. Minimal to nonweightbearing on the leg recommended. -Pain control -Physical therapy -Orthopedic follow-up DVT PROPHYLAXIS SCDs DISPOSITION-anticipate discharge home with home care after the hospital stay Oskar Francis MD
[2020-12-20] MEDS: Ondansetron 4 MG Tab.DIS PO PRN (17:25)
[2020-12-20] MEDS ORDERED: Polyethylene Glycol 3350 Powder 17 GM Packet PO PRN (17:28)
[2020-12-20] MEDS: Ondansetron 4 MG/2 ML SDV IV PRN (20:30)
[2020-12-20] MEDS: PRAZOSIN 2 MG PO SCH (21:27)
[2020-12-21] MEDS: Ondansetron 4 MG/2 ML SDV IV PRN ×2 (02:38→09:25)
[2020-12-21] MEDS: oxyCODONE 5 MG Tab PO PRN (07:49)
[2020-12-21] MEDS: Ondansetron 4 MG Tab.DIS PO PRN (07:49)
[2020-12-21] MEDS: Hydroxychloroquine 200 MG Tab PO SCH (08:46)
[2020-12-21] MEDS: busPIRone 10 MG Tab PO SCH (08:46)
--- NOTE | 2020-12-21 08:50 | PCM.CONSN ---
- General Info Date of Service: 12/21/20 Admission Dx/Problem (Free Text): left non-displaced tibial plateau fracture Functional Status: Reports: Pain Controlled, Tolerating Diet, Urinating - Review of Systems General: Reports: No Symptoms HEENT: Reports: No Symptoms Pulmonary: Reports: No Symptoms Cardiovascular: Reports: No Symptoms Gastrointestinal: Reports: Nausea Genitourinary: Reports: No Symptoms Musculoskeletal: Reports: Leg Pain, Joint Pain (L knee ), Joint Swelling Skin: Reports: Bruising Neurological: Reports: No Symptoms Psychiatric: Reports: No Symptoms - Patient Data Vitals - Most Recent: Last Vital Signs Temp 97.8 F 12/21/20 07:00 Pulse 73 12/21/20 07:00 Resp 16 12/21/20 07:00 BP 122/78 12/21/20 07:00 Pulse Ox 91 L 12/21/20 07:00 Weight - Most Recent: 161 lb I&O - Last 24 Hours: Intake & Output 12/20/20 12/21/20 12/21/20 22:59 06:59 14:59 Intake Total 480 Output Total 650 200 250 Balance -170 -200 -250 Med Orders - Current: Current Medications Acetaminophen (Acetaminophen 325 Mg Tab) 650 mg PO Q4H PRN PRN Reason: Pain (Mild 1-3)/fever Last Admin: 12/20/20 13:24 Dose: 650 mg Documented by: Albuterol (Albuterol 0.083% 2.5 Mg/3 Ml Neb Soln) 2.5 mg NEB Q4H PRN PRN Reason: Shortness Of Breath/wheezing Bupropion HCl (Bupropion 150 Mg Tab.Er) 450 mg PO DAILY [facility] Last Admin: 12/20/20 16:38 Dose: 450 mg Documented by: Buspirone HCl (Buspirone 10 Mg Tab) 30 mg PO BID [facility] Last Admin: 12/20/20 21:24 Dose: 30 mg Documented by: Docusate Sodium (Docusate Sodium 100 Mg Cap) 100 mg PO BID PRN PRN Reason: Constipation Duloxetine HCl (Duloxetine 30 Mg Cap) 90 mg PO DAILY [facility] Last Admin: 12/20/20 16:38 Dose: 90 mg Documented by: Fentanyl (Fentanyl 100 Mcg/2 Ml Sdv) 50 mcg IVPUSH Q4H PRN PRN Reason: Pain (severe 7-10) Last Admin: 12/19/20 11:38 Dose: 50 mcg Documented by: Hydroxychloroquine Sulfate (Hydroxychloroquine 200 Mg Tab) 200 mg PO DAILY [facility] Last Admin: 12/20/20 10:55 Dose: Not Given Documented by: Ondansetron HCl (Ondansetron 4 Mg Tab.Dis) 4 mg PO Q6H PRN PRN Reason: Nausea able to take PO Last Admin: 12/20/20 17:25 Dose: 4 mg Documented by: Ondansetron HCl (Ondansetron 4 Mg/2 Ml Sdv) 4 mg IV Q4H PRN PRN Reason: Nausea/Vomiting Last Admin: 12/21/20 02:38 Dose: 4 mg Documented by: Oxycodone HCl (Oxycodone 5 Mg Tab) 5 mg PO Q4H PRN PRN Reason: Pain (moderate 4-6) Last Admin: 12/19/20 06:34 Dose: 5 mg Documented by: Oxycodone HCl (Oxycodone 5 Mg Tab) 10 mg PO Q4H PRN PRN Reason: Pain (severe 7-10) Last Admin: 12/21/20 07:49 Dose: 10 mg Documented by: Prazosin 2mg Cap ( (Ptom)) 0 each PO BEDTIME [facility] Last Admin: 12/20/20 21:27 Dose: Not Given Documented by: Polyethylene Glycol (Polyethylene Glycol 3350 Powder 17 Gm Packet) 17 gm PO DAILY PRN PRN Reason: Constipation Last Admin: 12/20/20 17:40 Dose: 17 gm Documented by: Zolpidem Tartrate (Zolpidem 5 Mg Tab) 10 mg PO BEDTIME PRN PRN Reason: Insomnia Discontinued Medications Hydromorphone HCl (Hydromorphone 0.5 Mg/0.5 Ml Syringe) 0.5 mg IVPUSH ONETIME ONE Stop: 12/18/20 21:20 Last Admin: 12/18/20 21:25 Dose: 0.5 mg Documented by: Hydromorphone HCl (Hydromorphone 1 Mg/Ml Syringe) 1 mg IVPUSH ONETIME ONE Stop: 12/18/20 22:32 Last Admin: 12/18/20 22:38 Dose: 1 mg Documented by: Hydromorphone HCl (Hydromorphone 1 Mg/Ml Syringe) 1 mg IVPUSH Q3H PRN PRN Reason: Pain (severe 7-10) Sodium Chloride (Normal Saline) 1,000 mls @ 125 mls/hr IV ASDIRECTED [facility] Last Admin: 12/20/20 01:00 Dose: 125 mls/hr Documented by: Pantoprazole Sodium (Pantoprazole 40 Mg Vial) 40 mg IV ONETIME ONE Stop: 12/18/20 23:46 Last Admin: 12/19/20 00:24 Dose: 40 mg Documented by: Prazosin HCl (Prazosin 1 Mg Cap) 4 mg PO BEDTIME [facility] Last Admin: 12/19/20 00:24 Dose: 4 mg Documented by: - Exam Quality Assessment: DVT Prophylaxis (SCDs ) General: Alert, Oriented, Cooperative, No Acute Distress Extremities: Joint Swelling, Leg Pain, Limited Range of Motion Skin: Warm, Ecchymosis Neurological: No New Focal Deficit Psy/Mental Status: Alert, Normal Affect, Normal Mood Sepsis Event Note - Evaluation Sepsis Screening Result: No Definite Risk - Focused Exam Vital Signs: Vital Signs Temp Pulse Resp BP BP Pulse Ox 12/21/20 07:00 97.8 F 73 16 122/78 91 L 12/21/20 02:41 98.3 F 68 16 157/62 H 90 L 12/20/20 22:25 97.9 F 78 14 133/58 L 94 L Consult PN Assessment/Plan (1) Closed nondisplaced fracture of left tibial plateau SNOMED Code(s): 743664855, [id number] Code(s): S82.145A - NONDISPLACED BICONDYLAR FRACTURE OF LEFT TIBIA, INIT Current Visit: Yes Qualifiers: Encounter type: initial encounter Qualified Code(s): S82.145A - Nondisplaced bicondylar fracture of left tibia, initial encounter for closed fracture Problem List Initiated/Reviewed/Updated: Yes Plan: Patient is a pleasant 65 y/o female, sustained a left non-displaced tibial plateau fracture on 12/18/20. Patient was admitted for pain management and additional therapy services. Patient has had some hypotension; reports her systolic BP normally runs in the 90-100s. Patient denied dizziness, lightheadedness, nor fatigue. Patient endorsed pain is better controlled this morning. Denied numbness or tingling in left lower extremity. Does endorse mild nausea. Has been tolerating regular diet well, no emesis. Patient is toe-touch weight bearing status. Patient has been placed in a hinged- extension knee brace. Patient's pain has limited transfers and ambulation abilities with physical therapy. Patient is requiring a wheelchair for discharge due to mobility limitations; a walker or crutches are not sufficient at this time. Patient is unable to accomplish ADLs in home without a wheelchair. Family will be able to assist with wheelchair upon discharge to home. Exam: L knee with modest swelling. Tender to slight touch. Remains in hinged extension brace. Distal L LE neurovascularly intact. Plan: * Patient to participate in PT this morning to work on transfers from bed to chair and wheelchair * Anticipate discharge this afternoon, pending pain controlled with PO medications and progress in morning PT session
[2020-12-21] MEDS: DULoxetine 30 MG Cap PO SCH (08:55)
[2020-12-21] MEDS: buPROPion 150 MG Tab.ER PO SCH (08:57)
--- NOTE | 2020-12-21 09:45 | PCM.DCSUM1 ---
Discharge Summary - Hospital Course Brief History: 65 y/o female, presented to ED on 12/18/20 after fell on her left leg. CT scan revealed Left non-displaced tibial plateau fracture. Admitted for non-surgical management. Diagnosis: Stroke: No Modified [place] Scale: No Symptoms at All Modified [place] Scale Score: 0 - Discharge Data Discharge Date: 12/21/20 Discharge Disposition: Home, W Home Health Agency 06 Condition: Stable - Referral to Home Health Date of Face to Face Encounter: 12/21/20 Reason for Homebound Status: Is getting necessary medical equipment to be independent at home; wheelchair has been ordered. Patient will be functional/able to perform ADLs safely at home with wheelchair Primary Care Physician: PCP None Skilled Need: physical therapy; toe-touch weight bearing in hinged-extension knee brace. Assistance with improving mobility, ADLs as needed - Discharge Diagnosis/Problem(s) (1) Closed nondisplaced fracture of left tibial plateau SNOMED Code(s): 751369553, [id number] ICD Code: S82.145A - NONDISPLACED BICONDYLAR FRACTURE OF LEFT TIBIA, INIT Status: Acute Current Visit: Yes Qualifiers: Encounter type: initial encounter Qualified Code(s): S82.145A - Nondisplaced bicondylar fracture of left tibia, initial encounter for closed fracture - Patient Summary/Data Consults: Consultations 12/18/20 23:45 Consult to Physician [CONS] Routine Consulting Provider: Trevon Casas Call Completed to Consulting Physician: Yes: evaluation in am Reason for Consult: fracture left tibula Person Notified: Dr. Casas Date Notified: 12/18/20 Time Notified: 22:00 12/19/20 10:59 PT Evaluation and Treatment [CONS] Routine Please Evaluate and Treat. PT Reason for Consult: Ambulation Special Instructions: TTWB on left This query below is only for informational purposes and is not editable. Admission Diagnosis/Problem: Fracture of left tibial plateau Hospital Course: Patient is a pleasant 65 y/o female. She presented to the ED on 12/18/20 after her fell on her left leg; CT revealed a non-displaced left tibial plateau fracture. Orthopedics was consulted and determined this would best be managed non-operatively. Patient was admitted for non-surgical management of this fracture, which included pain management and physical therapy consultation. Patient was deemed toe-touch weight bearing status and placed in a hinged extension knee brace. Patient worked with physical therapy throughout her stay. Weight bearing status and pain limited patients ambulation abilities. She ambulated within her room <10 ft. Was unable to safely complete ADLs standing. Due to these mobility limitations, wheelchair would be beneficial for patient to complete ADLs safely; patient has family at home who will help with whee lchair. Home health referral in place to assist with ADLs and physical therapy for progressing ambulation abilities. Patient was hemodynamically stable throughout her stay. Some hypotension, but patient reports her systolic usually runs in the 90's-100's. Patient denied dizziness, lightheadedness, or fatigue. Patient struggled with nausea on her third day of hospitalization; prn Zofran was utilized but caused increased emesis. Pain medication changed from Oxycodone to Valley, and prn Compazine was added for nausea. Patient responded well to the Valley; reports pain is controlled with no nausea. - Patient Instructions Diet: Usual Diet as Tolerated Activity: Apply Ice, Elevate Extremity, No Strenuous Activities, Partial Weight Bearing (toe-touch weight bearing with hinged-extension knee brace ), Rest and Relax Today Driving: Do Not Drive Showering/Bathing: May Shower Notify Provider of: Fever, Increased Pain, Swelling and Redness - Discharge Plan *PRESCRIPTION DRUG MONITORING PROGRAM REVIEWED*: Yes *COPY OF PRESCRIPTION DRUG MONITORING REPORT IN PATIENT FRANCISCO: Not Applicable Prescriptions/Med Rec: Acetaminophen/HYDROcodone [Valley 325-5 MG] 1 - 2 tab PO Q6H PRN 7 Days #40 tab PRN Reason: Pain Home Medications: Home Meds DULoxetine HCl [Duloxetine HCl] 90 mg PO DAILY 12/18/20 [History] Hydroxychloroquine Sulfate [Plaquenil] 200 mg PO DAILY 12/18/20 [History] Methotrexate 200 mg PO Q7D 12/18/20 [History] Prazosin HCl [Prazosin] 4 mg PO BEDTIME 12/18/20 [History] Zolpidem [Ambien] 10 mg PO BEDTIME PRN 12/18/20 [History] buPROPion HCL [Bupropion Xl] 450 mg PO DAILY 12/18/20 [History] busPIRone HCl [busPIRone] 30 mg PO BID 12/18/20 [History] traMADol [Ultram] 50 mg PO TID PRN 12/18/20 [History] Acetaminophen/HYDROcodone [Valley 325-5 MG] 1 - 2 tab PO Q6H PRN 7 Days #40 tab 12/21/20 [Rx] Oxygen Therapy Mode: Room Air Referrals: Trevon Casas MD [Physician] - 01/01/21 2:30 pm (Please arrive 15 minutes early) - Discharge Summary/Plan Comment DC Time >30 min.: No Discharge Summary/Plan Comment: * Discharge to home this afternoon with referral for home health services. Daughter will also be staying with patient over the weekend to help as needed. Appropriate paperwork for home health referral and order for wheelchair have been completed. * Prescription sent for 1 week supply of pain medication; 5mg-325mg Valley q6hr prn, #40. * Education provided to patient on hinged-extension brace. * Patient to follow up with orthopedics on 01/01/21. * Encouraged patient to call if concerns/questions arise prior to scheduled apt. Patient agreeable and expressed understanding of above plan. - General Info Date of Service: 12/21/20 Functional Status: Reports: Pain Controlled, Tolerating Diet, Urinating - Review of Systems General: Reports: No Symptoms HEENT: Reports: No Symptoms Pulmonary: Reports: No Symptoms Cardiovascular: Reports: No Symptoms Gastrointestinal: Reports: Nausea (improved ) Genitourinary: Reports: No Symptoms Musculoskeletal: Reports: Leg Pain (left ), Joint Pain (L knee ), Joint Swelling Skin: Reports: Bruising Neurological: Reports: No Symptoms Psychiatric: Reports: No Symptoms - Patient Data Vitals - Most Recent: Last Vital Signs Temp 97.8 F 12/21/20 07:00 Pulse 73 12/21/20 07:00 Resp 16 12/21/20 07:00 BP 122/78 12/21/20 07:00 Pulse Ox 91 L 12/21/20 07:00 Weight - Most Recent: 161 lb I&O - Last 24 hours: Intake & Output 12/20/20 12/21/20 12/21/20 22:59 06:59 14:59 Intake Total 480 Output Total 650 200 250 Balance -170 -200 -250 Med Orders - Current: Current Medications Acetaminophen (Acetaminophen 325 Mg Tab) 650 mg PO Q4H PRN PRN Reason: Pain (Mild 1-3)/fever Last Admin: 12/20/20 13:24 Dose: 650 mg Documented by: Albuterol (Albuterol 0.083% 2.5 Mg/3 Ml Neb Soln) 2.5 mg NEB Q4H PRN PRN Reason: Shortness Of Breath/wheezing Bupropion HCl (Bupropion 150 Mg Tab.Er) 450 mg PO DAILY [facility] Last Admin: 12/21/20 08:57 Dose: 450 mg Documented by: Buspirone HCl (Buspirone 10 Mg Tab) 30 mg PO BID [facility] Last Admin: 12/21/20 08:46 Dose: 30 mg Documented by: Docusate Sodium (Docusate Sodium 100 Mg Cap) 100 mg PO BID PRN PRN Reason: Constipation Duloxetine HCl (Duloxetine 30 Mg Cap) 90 mg PO DAILY [facility] Last Admin: 12/21/20 08:55 Dose: 90 mg Documented by: Fentanyl (Fentanyl 100 Mcg/2 Ml Sdv) 50 mcg IVPUSH Q4H PRN PRN Reason: Pain (severe 7-10) Last Admin: 12/19/20 11:38 Dose: 50 mcg Documented by: Hydroxychloroquine Sulfate (Hydroxychloroquine 200 Mg Tab) 200 mg PO DAILY [facility] Last Admin: 12/21/20 08:46 Dose: 200 mg Documented by: Ondansetron HCl (Ondansetron 4 Mg Tab.Dis) 4 mg PO Q6H PRN PRN Reason: Nausea able to take PO Last Admin: 12/20/20 17:25 Dose: 4 mg Documented by: Ondansetron HCl (Ondansetron 4 Mg/2 Ml Sdv) 4 mg IV Q4H PRN PRN Reason: Nausea/Vomiting Last Admin: 12/21/20 09:25 Dose: 4 mg Documented by: Oxycodone HCl (Oxycodone 5 Mg Tab) 5 mg PO Q4H PRN PRN Reason: Pain (moderate 4-6) Last Admin: 12/19/20 06:34 Dose: 5 mg Documented by: Oxycodone HCl (Oxycodone 5 Mg Tab) 10 mg PO Q4H PRN PRN Reason: Pain (severe 7-10) Last Admin: 12/21/20 07:49 Dose: 10 mg Documented by: Prazosin 2mg Cap ( (Ptom)) 0 each PO BEDTIME [facility] Last Admin: 12/20/20 21:27 Dose: Not Given Documented by: Polyethylene Glycol (Polyethylene Glycol 3350 Powder 17 Gm Packet) 17 gm PO DAILY PRN PRN Reason: Constipation Last Admin: 12/20/20 17:40 Dose: 17 gm Documented by: Zolpidem Tartrate (Zolpidem 5 Mg Tab) 10 mg PO BEDTIME PRN PRN Reason: Insomnia Discontinued Medications Hydromorphone HCl (Hydromorphone 0.5 Mg/0.5 Ml Syringe) 0.5 mg IVPUSH ONETIME ONE Stop: 12/18/20 21:20 Last Admin: 12/18/20 21:25 Dose: 0.5 mg Documented by: Hydromorphone HCl (Hydromorphone 1 Mg/Ml Syringe) 1 mg IVPUSH ONETIME ONE Stop: 12/18/20 22:32 Last Admin: 12/18/20 22:38 Dose: 1 mg Documented by: Hydromorphone HCl (Hydromorphone 1 Mg/Ml Syringe) 1 mg IVPUSH Q3H PRN PRN Reason: Pain (severe 7-10) Sodium Chloride (Normal Saline) 1,000 mls @ 125 mls/hr IV ASDIRECTED [facility] Last Admin: 12/20/20 01:00 Dose: 125 mls/hr Documented by: Pantoprazole Sodium (Pantoprazole 40 Mg Vial) 40 mg IV ONETIME ONE Stop: 12/18/20 23:46 Last Admin: 12/19/20 00:24 Dose: 40 mg Documented by: Prazosin HCl (Prazosin 1 Mg Cap) 4 mg PO BEDTIME [facility] Last Admin: 12/19/20 00:24 Dose: 4 mg Documented by: - Exam General: Reports: Alert, Oriented, Cooperative, No Acute Distress Extremities: Joint Swelling (left knee ), Leg Pain (left ), Limited Range of Motion Skin: Reports: Warm, Intact Neurological: Reports: No New Focal Deficit Psy/Mental Status: Reports: Alert, Normal Affect, Normal Mood
[2020-12-21] MEDS ORDERED: Prochlorperazine 5 MG in Sodium Chloride 0.9% 50 ML IV PRN (10:21)
[2020-12-21] MEDS ORDERED: Acetaminophen/HYDROcodone 325-5 MG Tab PO PRN ×2 (11:49)
== END 2020-12-21 15:30 | disposition home health service (06) ==
LOC: JP.ED 20:40 → JP.MS 22:34
PROVIDERS: ADMIT Internal Medicine; ATTEND Internal Medicine
DX: S82.145A Nondisplaced bicondylar fracture of left tibia, initial encounter for closed fracture (principal); Z79.899 Other long term (current) drug therapy; Z98.890 Other specified postprocedural states; W03.XXXA Other fall on same level due to collision with another person, initial encounter
CPT/HCPCS: 36415; 73552-26-LT; 73552-LT; 73562-26-LT; 73562-LT; 73700-26-LT; 73700-LT; 80048; 85025; 94762; 96365; 96374; 96375; 96376; 97110-GP; 97116-GP; 97162-GP; 97530-GP; 97535-GP; 99202; 99213; 99217; 99219; 99224; 99225; 99285; 99285-25; A9270-GY; C9113; G0378; J0780; J1170; J2405; J3010; J7030

== ENCOUNTER 2021-04-03 16:07 | Observation (INO) | payer MEDICARE ==
[2021-04-03] MEDS ORDERED: Lactated Ringers 1,000 ML IV ONE (17:14)
[2021-04-03] MEDS ORDERED: Prochlorperazine 10 MG/2 ML SDV IVPUSH ONE (17:15)
[2021-04-03] MEDS ORDERED: Ketorolac 30 MG/ML SDV IVPUSH ONE (17:19)
--- NOTE | 2021-04-03 17:24 | EDM.PDOC ---
ED HPI GENERAL MEDICAL PROBLEM - General Chief Complaint: General Stated Complaint: NAUSEA VOMITING Time Seen by Provider: 04/03/21 17:10 Source of Information: Reports: Patient, Old Records, RN History Limitations: Reports: No Limitations - History of Present Illness INITIAL COMMENTS - FREE TEXT/NARRATIVE: 65 yo female presents with about a 4 d hx of nausea, vomiting, and a RESENDEZ. Not able to keep anything down. Was bitten by a tick recently. No diarrhea, fever, dysuria or hematemesis. Does have body aches. Has not been seen before today. No rash. Onset: Gradual Onset Date: 03/30/21 Duration: Day(s): (4), Constant Location: Reports: Head, Abdomen, Generalized Quality: Reports: Ache Severity: Moderate Improves with: Reports: None Worsens with: Reports: None Context: Reports: Other (See HPI) Associated Symptoms: Reports: Headaches, Nausea/Vomiting, Other (generalized aches) Treatments FIELD REP: Reports: Other (see below) (none) Headache Pain Score (Numeric/FACES): 7 - Related Data Allergies Allergy/AdvReac Type Severity Reaction Status Date / Time No Known Allergies Allergy Verified 12/18/20 20:45 Home Meds: Home Meds DULoxetine HCl [Duloxetine HCl] 90 mg PO DAILY 12/18/20 [History] Methotrexate 200 mg PO Q7D 12/18/20 [History] buPROPion HCL [Bupropion Xl] 450 mg PO DAILY 12/18/20 [History] Alendronate Sodium [Fosamax] 70 mg PO .WEEKLY 01/14/21 [History] Clindamycin Phosphate [Clindagel] 1 applic TP BID 01/14/21 [History] Dextromethorphan/guaiFENesin [Robitussin DM] 5 ml PO Q4H PRN 01/14/21 [History] Hydroxychloroquine [Plaquenil] 200 mg PO DAILY 02/05/21 [History] Past Medical History HEENT History: Reports: Hard of Hearing 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 L Tib Fx 12/18/20 Psychiatric History: Reports: Anxiety, Depression Oncologic (Cancer) History: Reports: Squamous Cell Carcinoma - Infectious Disease History Infectious Disease History: Reports: Chicken Pox, Measles, Mumps - Past Surgical History HEENT Surgical History: Reports: None Female Surgical History: Reports: Section Musculoskeletal Surgical History: Reports: Other (See Below) Other Musculoskeletal Surgeries/Procedures:: titianum joints x3 in l fingers Dermatological Surgical History: Reports: Skin Biopsy Social & Family History - Tobacco Use Tobacco Use Status *Q: Never Tobacco User - Caffeine Use Caffeine Use: Reports: Coffee - Recreational Drug Use Recreational Drug Use: No - Living Situation & Occupation Living situation: Reports: Occupation: Employed ED ROS GENERAL - Review of Systems Review Of Systems: See Below Constitutional: Reports: Malaise HEENT: Reports: No Symptoms Respiratory: Reports: No Symptoms Cardiovascular: Reports: No Symptoms GI/Abdominal: Reports: Nausea, Vomiting. Denies: Abdominal Pain, Black Stool, Bloody Stool, Constipation, Diarrhea, Distension, Flatus, Hematemesis, Hematochezia, Melena : Reports: No Symptoms. Denies: Dysuria Musculoskeletal: Reports: No Symptoms Skin: Reports: No Symptoms Neurological: Reports: Headache Psychiatric: Reports: No Symptoms ED EXAM, GENERAL - Physical Exam Exam: See Below Exam Limited By: No Limitations General Appearance: Alert, WD/WN, No Apparent Distress Eye Exam: Bilateral Eye: EOMI, Normal Inspection Ears: Normal External Exam, Normal Canal, Hearing Grossly Normal, Normal TMs Ear Exam: Bilateral Ear: Auricle Normal, Canal Normal, TM normal Nose: Normal Inspection, No Blood Throat/Mouth: Normal Inspection, Normal Lips, Normal Oropharynx, Normal Voice, No Airway Compromise Head: Atraumatic, Normocephalic Neck: Normal Inspection Respiratory/Chest: No Respiratory Distress, Lungs Clear, Normal Breath Sounds, No Accessory Muscle Use Cardiovascular: Regular Rate, Rhythm, No Edema GI/Abdominal: Normal Bowel Sounds, Soft, Non-Tender, No Distention Back Exam: Normal Inspection. No: CVA Tenderness (R), CVA Tenderness (L) Extremities: Normal Inspection, Normal Range of Motion, Non-Tender, No Pedal Edema Neurological: Alert, Oriented, CN II-XII Intact, Normal Cognition, No Motor/Sensory Deficits Psychiatric: Normal Affect, Normal Mood Skin Exam: Warm, Dry, Intact, Normal Color, No Rash Course - Vital Signs Text/Narrative:: Dr. Nascimento called @ 1815h Last Recorded V/S: Last Vital Signs Temp 36.8 C 06/23/21 16:09 Pulse 84 04/03/21 17:59 Resp 16 04/03/21 16:09 BP 152/70 H 04/03/21 17:59 Pulse Ox 94 L 04/03/21 16:09 - Orders/Labs/Meds Orders: Active Orders 24 hr Category Date Time Status [facility] Routine Lab 04/03/21 18:10 Received Labs: Laboratory Tests 04/03/21 04/03/21 04/03/21 Range/Units 17:24 17:24 17:24 WBC 4.2 L (4.5-11.0) K/uL RBC 4.57 (3.30-5.50) M/uL Hgb 13.1 (12.0-15.0) g/dL Hct 39.9 (36.0-48.0) % MCV 87 (80-98) fL MCH 29 (27-31) pg MCHC 33 (32-36) % Plt Count 126 L (150-400) K/uL Neut % (Auto) 87.2 H (36-66) % Lymph % (Auto) 7.0 L (24-44) % [place] % (Auto) 5.8 (2-6) % Eos % (Auto) 0.0 L (2-4) % Baso % (Auto) 0.0 (0-1) % Sodium 133 L (140-148) mmol/L Potassium 3.5 L (3.6-5.2) mmol/L Chloride 97 L (100-108) mmol/L Carbon Dioxide 27 (21-32) mmol/L Anion Gap 12.5 (5.0-14.0) mmol/L BUN 9 (7-18) mg/dL Creatinine 0.7 (0.6-1.0) mg/dL Est Cr Clr Drug Dosing 61.68 mL/min Estimated GFR (MDRD) > 60 (>60) Glucose 114 H (74-106) mg/dL Calcium 8.3 L (8.5-10.1) mg/dL C-Reactive Protein 3.27 H (0.0-0.3) mg/dL Meds: Medications Discontinued Medications Generic Name Dose Route Start Last Admin Trade Name Freq PRN Reason Stop Dose Admin Acetaminophen 1,000 mg 04/03/21 17:59 Acetaminophen 500 Mg Tab PO 04/03/21 18:00 ONETIME ONE Doxycycline Hyclate 100 mg 04/03/21 17:56 Doxycycline 100 Mg Cap PO 04/03/21 17:57 ONETIME ONE Lactated Ringer's 1,000 mls @ 1,000 mls/hr 04/03/21 17:14 04/03/21 17:42 Ringers, Lactated IV 04/03/21 18:13 1,000 mls/hr BOLUS ONE Administration Ketorolac Tromethamine 30 mg 04/03/21 17:19 04/03/21 17:41 Ketorolac 30 Mg/Ml Sdv IVPUSH 04/03/21 17:20 30 mg ONETIME ONE Administration Prochlorperazine Edisylate 5 mg 04/03/21 17:15 04/03/21 17:42 Prochlorperazine 10 Mg/2 Ml Sdv IVPUSH 04/03/21 17:16 5 mg ONETIME ONE Administration Departure - Departure Time of Disposition: 18:25 Disposition: Refer to Observation Condition: Fair Clinical Impression: Anaplasmosis Nausea and vomiting Qualifiers: Vomiting type: unspecified Vomiting Intractability: non-intractable Qualified Code(s): R11.2 - Nausea with vomiting, unspecified Headache Qualifiers: Headache type: other headache syndrome Qualified Code(s): G44.89 - Other headache syndrome - Discharge Information Referrals: PCP,None [Primary Care Provider] - Forms: ED Department Discharge Sepsis Event Note (ED) - Evaluation Sepsis Screening Result: No Definite Risk - Focused Exam Vital Signs: Vital Signs Temp Pulse Resp BP Pulse Ox 04/03/21 17:59 84 152/70 H 04/03/21 16:09 36.8 C 84 16 140/72 94 L - My Orders Last 24 Hours: My Active Orders 04/03/21 18:10 [facility] Routine - Assessment/Plan Last 24 Hours: My Active Orders 04/03/21 18:10 [facility] Routine
[2021-04-03] MEDS ORDERED: Doxycycline 100 MG Cap PO ONE (17:56)
[2021-04-03] MEDS ORDERED: Acetaminophen 500 MG Tab PO ONE (17:59)
--- NOTE | 2021-04-03 19:10 | PCM.HP.2 ---
H&P History of Present Illness - General Date of Service: 04/03/21 Admit Problem/Dx: Admission Diagnosis/Problem Admission Diagnosis/Problem Tick-borne disease Source of Information: Patient, EMS Notes Reviewed, Provider, RN History Limitations: Reports: No Limitations - History of Present Illness Initial Comments - Free Text/Narative: chief complaint: tick borne illness This is a 65 year old female presents to ER via EMS with a 4 day history of nausea, vomiting, headache and weakness. She reports 4 days days ago found a deer tick imbedded near the right anterior axilla. Her Daughter was able to remove the tick. She called the Ambulance because she was so weak. The EMS gave her IV fluids and IV Zofran which improved her symptoms. In ER was given IV fluids, IV Compazine, PO Doxy 100 mg at 1820, IV Toradol 30mg at 1742 and PO Tylenol 1000mg. Labs show low WBC, Low Platelets, Na+ 133, K+ 3.5, Cl 97, Anio gap 12.5, BUN 9, Cr. 0.7, Glucose 114, Ca 8.3, CRP 3.27. Labs and HPI are consistent with tick-borne illness. She reports not comfortable going home but is feeling better with medications given in EMS and ER. Onset of Symptoms: Reports: Gradual Symptom Onset Date: 03/30/21 Location: Reports: Generalized Quality: Reports: Other (nausae, vomiting, weakness) Improves with: Reports: Rest Worsens with: Reports: Movement Context: Reports: Other (tick bite) Associated Symptoms: Reports: Fever/Chills, Headaches, Loss of Appetite, Nausea/Vomiting, Weakness Headache Pain Score (Numeric/FACES): 7 - Related Data Allergies/Adverse Reactions: Allergies Allergy/AdvReac Type Severity Reaction Status Date / Time No Known Allergies Allergy Verified 12/18/20 20:45 Home Medications: Home Meds DULoxetine HCl [Duloxetine HCl] 90 mg PO DAILY 12/18/20 [History] Methotrexate 200 mg PO Q7D 12/18/20 [History] buPROPion HCL [Bupropion Xl] 450 mg PO DAILY 12/18/20 [History] Alendronate Sodium [Fosamax] 70 mg PO .WEEKLY 01/14/21 [History] Clindamycin Phosphate [Clindagel] 1 applic TP BID 01/14/21 [History] Dextromethorphan/guaiFENesin [Robitussin DM] 5 ml PO Q4H PRN 01/14/21 [History] Hydroxychloroquine [Plaquenil] 200 mg PO DAILY 02/05/21 [History] Past Medical History HEENT History: Reports: Hard of Hearing [employer]ACHINE History: Reports: , 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 L Tib Fx 12/18/20 Psychiatric History: Reports: Anxiety, Depression Oncologic (Cancer) History: Reports: Squamous Cell Carcinoma - Infectious Disease History Infectious Disease History: Reports: Chicken Pox, Measles, Mumps - Past Surgical History HEENT Surgical History: Reports: None Female Surgical History: Reports: Section Musculoskeletal Surgical History: Reports: Other (See Below) Other Musculoskeletal Surgeries/Procedures:: titianum joints x3 in l fingers Dermatological Surgical History: Reports: Skin Biopsy Social & Family History - Tobacco Use Tobacco Use Status *Q: Never Tobacco User - Caffeine Use Caffeine Use: Reports: Coffee - Recreational Drug Use Recreational Drug Use: No - Living Situation & Occupation Living situation: Reports: Occupation: Employed H&P Review of Systems - Review of Systems: Review Of Systems: See Below General: Reports: No Symptoms, Fever, Malaise, Weakness, Decreased Appetite HEENT: Reports: Glasses Pulmonary: Reports: No Symptoms Cardiovascular: Reports: No Symptoms Gastrointestinal: Reports: Decreased Appetite, Nausea, Vomiting Genitourinary: Reports: No Symptoms Musculoskeletal: Reports: No Symptoms Skin: Reports: No Symptoms, Other (puncture wound to the anterior right axilla) Psychiatric: Reports: No Symptoms Neurological: Reports: Weakness Hematologic/Lymphatic: Reports: No Symptoms Immunologic: Reports: No Symptoms Exam - Exam Exam: See Below - Vital Signs Vital Signs: Last Vital Signs Temp 98.3 F 04/03/21 16:09 Pulse 84 04/03/21 17:59 Resp 16 04/03/21 16:09 BP 152/70 H 04/03/21 17:59 Pulse Ox 94 L 04/03/21 16:09 Weight: 155 lb - Exam Quality Assessment: DVT Prophylaxis General: Alert, Oriented, Cooperative, Other (neat and well groomed, pleasant) HEENT: PERRLA, Conjunctiva Clear, EOMI, Hearing Intact, Posterior Pharynx Clear, Pupils Equal, Pupils Reactive, Glasses, Other (mouth is dry, lips chapped.) Neck: Supple, Trachea Midline Lungs: Clear to Auscultation, Normal Respiratory Effort Cardiovascular: Regular Rate, Regular Rhythm, Normal S1, Normal S2 GI/Abdominal Exam: Normal Bowel Sounds, Soft, Non-Tender, No Organomegaly, No Distention (Female) Exam: Deferred Rectal (Female) Exam: Deferred Back Exam: Normal Inspection, Full Range of Motion Extremities: Normal Inspection, Normal Range of Motion, Non-Tender, No Pedal Edema, Normal Capillary Refill Peripheral Pulses: 2+: Radial (L), Radial (R) Skin: Warm, Dry, Intact Neurological: Cranial Nerves Intact, Reflexes Equal Bilateral Neuro Extensive - Mental Status: Alert, Oriented x3, Normal Mood/Affect, Normal Cognition Neuro Extensive - Motor, Sensory, Reflexes: CN II-XII Intact, Normal Gait, Normal Reflexes Psychiatric: Alert, Normal Affect, Normal Mood - Patient Data Lab Results Last 24 hrs: Laboratory Results - last 24 hr 04/03/21 04/03/21 04/03/21 Range/Units 17:24 17:24 17:24 WBC 4.2 L (4.5-11.0) K/uL RBC 4.57 (3.30-5.50) M/uL Hgb 13.1 (12.0-15.0) g/dL Hct 39.9 (36.0-48.0) % MCV 87 (80-98) fL MCH 29 (27-31) pg MCHC 33 (32-36) % Plt Count 126 L (150-400) K/uL Neut % (Auto) 87.2 H (36-66) % Lymph % (Auto) 7.0 L (24-44) % [place] % (Auto) 5.8 (2-6) % Eos % (Auto) 0.0 L (2-4) % Baso % (Auto) 0.0 (0-1) % Sodium 133 L (140-148) mmol/L Potassium 3.5 L (3.6-5.2) mmol/L Chloride 97 L (100-108) mmol/L Carbon Dioxide 27 (21-32) mmol/L Anion Gap 12.5 (5.0-14.0) mmol/L BUN 9 (7-18) mg/dL Creatinine 0.7 (0.6-1.0) mg/dL Est Cr Clr Drug Dosing 61.68 mL/min Estimated GFR (MDRD) > 60 (>60) Glucose 114 H (74-106) mg/dL Calcium 8.3 L (8.5-10.1) mg/dL C-Reactive Protein 3.27 H (0.0-0.3) mg/dL Result Diagrams: 04/03/21 17:24 04/03/21 17:24 Sepsis Event Note - Evaluation Sepsis Screening Result: No Definite Risk - Focused Exam Vital Signs: Vital Signs Temp Pulse Resp BP Pulse Ox 04/03/21 17:59 84 152/70 H 04/03/21 16:09 98.3 F 84 16 140/72 94 L - Problem List (1) At high risk for tick borne illness SNOMED Code(s): 129894717 ICD Code: Z91.89 - OTH PERSONAL RISK FACTORS, NOT ELSEWHERE CLASSIFIED Status: Acute Priority: High Current Visit: Yes (2) Arthritis SNOMED Code(s): 8601148 ICD Code: M19.90 - UNSPECIFIED OSTEOARTHRITIS, UNSPECIFIED SITE Status: Acute Priority: High Current Visit: Yes (3) Anaplasmosis SNOMED Code(s): 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 She reports 4 days days ago found a deer tick imbedded near the right anterior axilla. Her Daughter was able to remove the tick. She called the Ambulance because she was so weak. The EMS gave her IV fluids and IV Zofran which improved her symptoms. In ER was given IV fluids, IV Compazine, PO Doxy 100 mg at 1820, IV Toradol 30mg at 1742 and PO Tylenol 1000mg. Labs show low WBC, Low Platelets, Na+ 133, K+ 3.5, Cl 97, Anio gap 12.5, BUN 9, Cr. 0.7, Glucose 114, Ca 8.3, CRP 3.27. Labs and HPI are consistent with tick-borne illness. She reports not comfortable going home but is feeling better with medications given in EMS and ER. ANAPLASMOSIS, TICK BORNE ILLNESS -Admit Observation [address] [place] [address] for further monitoring -IV Fluids for rehydration NS at 125 mL per hour -IV Antibiotic Doxycycline 100 mg IV every 12 hours -anti-emetic medication as needed for nausea and vomiting -Tylenol, Toradol and Narcotic medication ordered for pain control -Tylenol as needed for pain or fever -Advise to notify nurses of any chest pain or other symptoms -Labs Tick panel pending -And a.m. labs: CBC, BMP Arthritis -continue outpatient medications. Maintenance issues -Orders home medications: ordered -Nutrition: regular diet -Rosario catheter: not indicated at this time -DVT: Lovenox 40 mg subcut -PPI; IV Protonix 40mg daily CODE STATUS: FULL Admission status: Admit to Observation -I expect this patient to stay less than 24 hours, not to exceed 96 hours for evaluation and management of this problem admission status: Admit to [address] [place] [address] Disposition: home with Family [facility] Hospital[facility]: Dr. Celena Nascimento - Mortality Measure Prognosis:: Good
[2021-04-03] MEDS ORDERED: Ketorolac 30 MG/ML SDV IM PRN (20:15)
[2021-04-03] MEDS ORDERED: Docusate Sodium 100 MG Cap PO PRN (20:15)
[2021-04-03] MEDS ORDERED: oxyCODONE 5 MG Tab PO PRN (20:15)
[2021-04-03] MEDS ORDERED: Ondansetron 4 MG/2 ML SDV IV PRN (20:15)
[2021-04-03] MEDS ORDERED: Bisacodyl 5 MG Tab PO PRN (20:15)
[2021-04-03] MEDS ORDERED: Albuterol/Ipratropium 3.0-0.5 MG/3 ML Neb Soln NEB PRN (20:15)
[2021-04-03] MEDS ORDERED: Albuterol 0.083% 2.5 MG/3 ML Neb Soln NEB PRN (20:15)
[2021-04-03] MEDS ORDERED: Ondansetron 4 MG Tab.DIS PO PRN (20:15)
[2021-04-03] MEDS ORDERED: guaiFENesin/Dextromethorphan 100-10 MG/5 ML Soln 10 ML Cup PO PRN (20:15)
[2021-04-03] MEDS ORDERED: Morphine 2 MG/ML SYRINGE IVPUSH PRN (20:15)
[2021-04-03] MEDS: Sodium Chloride 0.9% 1,000 ML IV SCH (20:39)
[2021-04-03] MEDS: Pantoprazole 40 MG Vial IV SCH (20:39)
[2021-04-04] MEDS: Acetaminophen 325 MG Tab PO PRN ×2 (01:35→10:30)
[2021-04-04] MEDS: Sodium Chloride 0.9% 1,000 ML IV SCH (04:52)
[2021-04-04] MEDS ORDERED: Doxycycline 100 MG in Sodium Chloride 0.9% 100 ML IV SCH (09:00)
[2021-04-04] MEDS ORDERED: Potassium Chloride 20 MEQ Tab.ER PO ONE (10:00)
[2021-04-04] MEDS: Enoxaparin 40 MG/0.4 ML Syringe SUBCUT SCH (13:40)
[2021-04-04] MEDS: DULoxetine 30 MG Cap PO SCH (13:46)
[2021-04-04] MEDS: Hydroxychloroquine 200 MG Tab PO SCH (13:46)
[2021-04-04] MEDS: buPROPion 150 MG Tab.ER PO SCH (13:49)
--- NOTE | 2021-04-04 18:02 | PCM.PN ---
- General Info Date of Service: 04/04/21 Admission Dx/Problem (Free Text): Ms. Gray had no acute events overnight and is feeling significantly better today. She is no longer having a headache, nausea, or vomiting. She did develop a fever noted during exam and was given Tylenol. She originally wanted to go home but decided that it would be better for her to wait until tomorrow and hopefully when she is afebrile. She is willing to take Tylenol and Motrin at home for fever if need be. She was able to eat today without issue. She has no acute complaints. Functional Status: Reports: Tolerating Diet, Ambulating, Urinating - Review of Systems General: Reports: Chills, Appetite. Denies: Fever, Weakness HEENT: Denies: Headaches, Visual Changes Pulmonary: Denies: Shortness of Breath Cardiovascular: Denies: Chest Pain, Palpitations Gastrointestinal: Denies: Constipation, Diarrhea, Nausea, Vomiting Genitourinary: Denies: Dysuria, Frequency, Urgency Musculoskeletal: Reports: No Symptoms Skin: Reports: No Symptoms Neurological: Denies: Dizziness, Headache - Patient Data Vitals - Most Recent: Last Vital Signs Temp 98.6 F 04/04/21 14:29 Pulse 64 04/04/21 14:29 Resp 16 04/04/21 14:29 BP 103/66 04/04/21 14:29 Pulse Ox 95 04/04/21 14:29 Weight - Most Recent: 164 lb 7.437 oz I&O - Last 24 Hours: Intake & Output 04/04/21 04/04/21 04/04/21 06:59 14:59 22:59 Intake Total 2600 Output Total 1200 1000 Balance -1200 1600 Lab Results Last 24 Hours: Laboratory Results - last 24 hr 04/03/21 04/04/21 04/04/21 Range/Units 23:12 05:33 05:33 WBC 3.3 L (4.5-11.0) K/uL RBC 4.04 (3.30-5.50) M/uL Hgb 11.6 L (12.0-15.0) g/dL Hct 35.7 L (36.0-48.0) % MCV 88 (80-98) fL MCH 29 (27-31) pg MCHC 33 (32-36) % Plt Count 100 L (150-400) K/uL Neut % (Auto) 83.6 H (36-66) % Lymph % (Auto) 10.0 L (24-44) % [place] % (Auto) 6.4 H (2-6) % Eos % (Auto) 0.0 L (2-4) % Baso % (Auto) 0.0 (0-1) % Sodium 136 L (140-148) mmol/L Potassium 3.2 L (3.6-5.2) mmol/L Chloride 102 (100-108) mmol/L Carbon Dioxide 24 (21-32) mmol/L Anion Gap 13.2 (5.0-14.0) mmol/L BUN 8 (7-18) mg/dL Creatinine 0.7 (0.6-1.0) mg/dL Est Cr Clr Drug Dosing 61.68 mL/min Estimated GFR (MDRD) > 60 (>60) Glucose 93 (74-106) mg/dL Calcium 7.8 L (8.5-10.1) mg/dL Urine Color Yellow (YELLOW) Urine Appearance Clear (CLEAR) Urine pH 6.5 (5.0-8.0) Ur Specific [place] 1.015 (1.008-1.030) Urine Protein Negative (NEGATIVE) mg/dL Urine Glucose (UA) Negative (NEGATIVE) mg/dL Urine Ketones Negative (NEGATIVE) mg/dL Urine Occult Blood Moderate H (NEGATIVE) Urine Nitrite Negative (NEGATIVE) Urine Bilirubin Negative (NEGATIVE) Urine Urobilinogen 0.2 (0.2-1.0) EU/dL Ur Leukocyte Esterase Negative (NEGATIVE) Urine RBC 0-5 (0-5) Urine WBC Not seen (0-5) Ur Epithelial Cells Rare Amorphous Sediment Rare Urine Bacteria Rare Urine Mucus Not seen Med Orders - Current: Current Medications Acetaminophen (Acetaminophen 325 Mg Tab) 650 mg PO Q4H PRN PRN Reason: Pain (Mild 1-3)/fever Last Admin: 04/04/21 10:30 Dose: 650 mg Documented by: Albuterol (Albuterol 0.083% 2.5 Mg/3 Ml Neb Soln) 2.5 mg NEB Q4H PRN PRN Reason: Shortness Of Breath/wheezing Albuterol/Ipratropium (Albuterol/Ipratropium 3.0-0.5 Mg/3 Ml Neb Soln) 3 ml NEB QID PRN PRN Reason: Shortness Of Breath/wheezing Bisacodyl (Bisacodyl 5 Mg Tab) 5 mg PO DAILY PRN PRN Reason: Constipation Bupropion HCl (Bupropion 150 Mg Tab.Er) 450 mg PO DAILY [facility] Last Admin: 04/04/21 13:49 Dose: Not Given Documented by: Docusate Sodium (Docusate Sodium 100 Mg Cap) 100 mg PO BID PRN PRN Reason: Constipation Doxycycline Hyclate (Doxycycline 100 Mg Cap) 100 mg PO BID [facility] Stop: 04/11/21 21:01 Duloxetine HCl (Duloxetine 30 Mg Cap) 90 mg PO DAILY [facility] Last Admin: 04/04/21 13:46 Dose: Not Given Documented by: Enoxaparin Sodium (Enoxaparin 40 Mg/0.4 Ml Syringe) 40 mg SUBCUT DAILY [facility] Last Admin: 04/04/21 13:40 Dose: Not Given Documented by: Guaifenesin/Dextromethorphan (Guaifenesin/Dextromethorphan 100-10 Mg/5 Ml Soln 10 Ml Cup) 5 ml PO Q4H PRN PRN Reason: Cough Hydroxychloroquine Sulfate (Hydroxychloroquine 200 Mg Tab) 200 mg PO DAILY [facility] Last Admin: 04/04/21 13:46 Dose: Not Given Documented by: Ketorolac Tromethamine (Ketorolac 30 Mg/Ml Sdv) 30 mg IM Q6H PRN PRN Reason: Pain (moderate 4-6) Stop: 04/09/21 20:16 Morphine Sulfate (Morphine 2 Mg/Ml Syringe) 2 mg IVPUSH Q2H PRN PRN Reason: Pain (severe 7-10) Ondansetron HCl (Ondansetron 4 Mg Tab.Dis) 4 mg PO Q6H PRN PRN Reason: Nausea able to take PO Ondansetron HCl (Ondansetron 4 Mg/2 Ml Sdv) 4 mg IV Q4H PRN PRN Reason: Nausea/Vomiting Oxycodone HCl (Oxycodone 5 Mg Tab) 5 mg PO Q4H PRN PRN Reason: Pain (moderate 4-6) Last Admin: 04/04/21 01:35 Dose: 5 mg Documented by: Pantoprazole Sodium (Pantoprazole 40 Mg Vial) 40 mg IV BEDTIME [facility] Last Admin: 04/03/21 20:39 Dose: 40 mg Documented by: Discontinued Medications Acetaminophen (Acetaminophen 500 Mg Tab) 1,000 mg PO ONETIME ONE Stop: 04/03/21 18:00 Last Admin: 04/03/21 18:21 Dose: 1,000 mg Documented by: Doxycycline Hyclate (Doxycycline 100 Mg Cap) 100 mg PO ONETIME ONE Stop: 04/03/21 17:57 Last Admin: 04/03/21 18:21 Dose: 100 mg Documented by: Lactated Ringer's (Ringers, Lactated) 1,000 mls @ 1,000 mls/hr IV BOLUS ONE Stop: 04/03/21 18:13 Last Admin: 04/03/21 17:42 Dose: 1,000 mls/hr Documented by: Doxycycline Hyclate 100 mg/ (Sodium Chloride) 100 mls @ 100 mls/hr IV Q12H [facility] Last Admin: 04/04/21 08:57 Dose: 100 mls/hr Documented by: Sodium Chloride (Normal Saline) 1,000 mls @ 125 mls/hr IV ASDIRECTED [facility] Last Admin: 04/04/21 04:52 Dose: 125 mls/hr Documented by: Ketorolac Tromethamine (Ketorolac 30 Mg/Ml Sdv) 30 mg IVPUSH ONETIME ONE Stop: 04/03/21 17:20 Last Admin: 04/03/21 17:41 Dose: 30 mg Documented by: Potassium Chloride (Potassium Chloride 20 Meq Tab.Er) 20 meq PO ONETIME ONE Stop: 04/04/21 10:01 Last Admin: 04/04/21 10:30 Dose: 20 meq Documented by: Prochlorperazine Edisylate (Prochlorperazine 10 Mg/2 Ml Sdv) 5 mg IVPUSH ONETIME ONE Stop: 04/03/21 17:16 Last Admin: 04/03/21 17:42 Dose: 5 mg Documented by: - Exam General: Alert, Oriented, Cooperative, No Acute Distress HEENT: Pupils Equal, EOMI, Mucous Membr. Moist/[place] Lungs: Clear to Auscultation, Normal Respiratory Effort Cardiovascular: Regular Rate, Regular Rhythm GI/Abdominal Exam: Normal Bowel Sounds, Soft, Non-Tender, No Distention Back Exam: Normal Inspection Extremities: Normal Inspection, Non-Tender. No: Pedal Edema Skin: Warm, Dry, Intact Neurological: No New Focal Deficit Psy/Mental Status: Alert, Normal Affect, Normal Mood - Patient Data Lab Results Last 24 hrs: Laboratory Results - last 24 hr 04/03/21 04/04/21 04/04/21 Range/Units 23:12 05:33 05:33 WBC 3.3 L (4.5-11.0) K/uL RBC 4.04 (3.30-5.50) M/uL Hgb 11.6 L (12.0-15.0) g/dL Hct 35.7 L (36.0-48.0) % MCV 88 (80-98) fL MCH 29 (27-31) pg MCHC 33 (32-36) % Plt Count 100 L (150-400) K/uL Neut % (Auto) 83.6 H (36-66) % Lymph % (Auto) 10.0 L (24-44) % [place] % (Auto) 6.4 H (2-6) % Eos % (Auto) 0.0 L (2-4) % Baso % (Auto) 0.0 (0-1) % Sodium 136 L (140-148) mmol/L Potassium 3.2 L (3.6-5.2) mmol/L Chloride 102 (100-108) mmol/L Carbon Dioxide 24 (21-32) mmol/L Anion Gap 13.2 (5.0-14.0) mmol/L BUN 8 (7-18) mg/dL Creatinine 0.7 (0.6-1.0) mg/dL Est Cr Clr Drug Dosing 61.68 mL/min Estimated GFR (MDRD) > 60 (>60) Glucose 93 (74-106) mg/dL Calcium 7.8 L (8.5-10.1) mg/dL Urine Color Yellow (YELLOW) Urine Appearance Clear (CLEAR) Urine pH 6.5 (5.0-8.0) Ur Specific [place] 1.015 (1.008-1.030) Urine Protein Negative (NEGATIVE) mg/dL Urine Glucose (UA) Negative (NEGATIVE) mg/dL Urine Ketones Negative (NEGATIVE) mg/dL Urine Occult Blood Moderate H (NEGATIVE) Urine Nitrite Negative (NEGATIVE) Urine Bilirubin Negative (NEGATIVE) Urine Urobilinogen 0.2 (0.2-1.0) EU/dL Ur Leukocyte Esterase Negative (NEGATIVE) Urine RBC 0-5 (0-5) Urine WBC Not seen (0-5) Ur Epithelial Cells Rare Amorphous Sediment Rare Urine Bacteria Rare Urine Mucus Not seen Result Diagrams: 04/04/21 05:33 04/04/21 05:33 Sepsis Event Note - Evaluation Sepsis Screening Result: No Definite Risk - Focused Exam Vital Signs: Vital Signs Temp Pulse Resp BP Pulse Ox 04/04/21 14:29 98.6 F 64 16 103/66 95 04/04/21 10:34 100.6 F 73 16 122/98 H 96 04/04/21 07:19 95 04/04/21 07:00 98.8 F 79 16 118/43 L 95 - Problem List Review Problem List Initiated/Reviewed/Updated: Yes - My Orders Last 24 Hours: My Active Orders 04/04/21 21:00 Doxycycline [Vibramycin] 100 mg PO BID - Plan Plan:: ASSESSMENT / PLAN: ANAPLASMOSIS, TICK BORNE ILLNES This is a 65 year old female presents to ER via EMS with a 4 day history of nausea, vomiting, headache and weakness. She reports 4 days days ago found a deer tick imbedded near the right anterior axilla. Her Daughter was able to remove the tick. She called the Ambulance because she was so weak. The EMS gave her IV fluids and IV Zofran which improved her symptoms. ANAPLASMOSIS, TICK BORNE ILLNESS -IV fluids have been stopped as she is drinking water adequately -IV Antibiotic Doxycycline 100 mg was changed to oral in preparation for discha rge in the morning -anti-emetic medication as needed for nausea and vomiting -Tylenol, Toradol and Narcotic medication ordered for pain control -Tylenol as needed for pain or fever -Advise to notify nurses of any chest pain or other symptoms -Labs Tick panel pending Arthritis -continue outpatient medications. Maintenance issues -Orders home medications: ordered -Nutrition: regular diet -Rosario catheter: not indicated at this time -DVT: Lovenox 40 mg subcut -PPI; IV Protonix 40mg daily CODE STATUS: FULL Disposition: home with Family in the morning. She was counseled on using Tylenol and Motrin alternating for fever if she develops at home. Primary care provider: Dr. Roman, [facility] Sarita Nascimento DO
[2021-04-04] MEDS: Pantoprazole 40 MG Vial IV SCH (20:35)
[2021-04-04] MEDS: Doxycycline 100 MG Cap PO SCH (20:36)
[2021-04-04] MEDS ORDERED: Zolpidem 5 MG Tab PO ONE (20:54)
[2021-04-05] MEDS: DULoxetine 30 MG Cap PO SCH (09:32)
[2021-04-05] MEDS: Hydroxychloroquine 200 MG Tab PO SCH (09:33)
[2021-04-05] MEDS: buPROPion 150 MG Tab.ER PO SCH (09:34)
[2021-04-05] MEDS: Doxycycline 100 MG Cap PO SCH (09:34)
[2021-04-05] MEDS: Enoxaparin 40 MG/0.4 ML Syringe SUBCUT SCH (10:35)
[2021-04-05] MEDS ORDERED: Pantoprazole 40 MG Tab.CR PO SCH (21:00)
--- NOTE | 2021-04-06 18:07 | PCM.DCSUM1 ---
Discharge Summary - Hospital Course Free Text/Narrative:: Ms. Gray is a 65-year-old white female who came in after 4 days of nausea, vomiting, headache, and weakness after finding a tach in her axilla. She was noted to have a low white count on arrival. It was suspected with a history of tick bite and the laboratory values that she had anaplasmosis. She was treated with doxycycline and fluids. Her symptoms improved significantly and she was no longer having fever, nausea, vomiting, or headache. She was sent home with the rest of the course of doxycycline for Anaplasma. The lab for tickborne illnesses has not returned. Diagnosis: Stroke: No Modified [place] Scale: No Symptoms at All Modified [place] Scale Score: 0 - Discharge Data Discharge Date: 04/05/21 Discharge Disposition: Home, Self-Care 01 Condition: Good - Referral to Home Health Primary Care Physician: PCP None - Discharge Diagnosis/Problem(s) (1) Anaplasmosis SNOMED Code(s): 04395924 ICD Code: A77.49 - OTHER EHRLICHIOSIS Status: Acute Priority: High - Discharge Plan Prescriptions/Med Rec: Doxycycline [Vibramycin] 100 mg PO BID #18 cap Home Medications: Home Meds DULoxetine HCl [Duloxetine HCl] 90 mg PO DAILY 12/18/20 [History] Methotrexate 200 mg PO Q7D 12/18/20 [History] buPROPion HCL [Bupropion Xl] 450 mg PO DAILY 12/18/20 [History] Alendronate Sodium [Fosamax] 70 mg PO .WEEKLY 01/14/21 [History] Clindamycin Phosphate [Clindagel] 1 applic TP BID 01/14/21 [History] Dextromethorphan/guaiFENesin [Robitussin DM] 5 ml PO Q4H PRN 01/14/21 [History] Hydroxychloroquine [Plaquenil] 200 mg PO DAILY 02/05/21 [History] Albuterol [Proventil Neb Soln] 2.5 mg NEB Q4H PRN neb 04/05/21 [Rx] Doxycycline [Vibramycin] 100 mg PO BID #18 cap 04/05/21 [Rx] Patient Handouts: Ehrlichiosis and Anaplasmosis, [id number], Doxycycline tablets or capsules Referrals: Nilam Dailey MD [Ordering Only Provider] - 04/12/21 1:30 pm (Please arrive 15 minutes early to register for appointment.) - Discharge Summary/Plan Comment DC Time >30 min.: Yes - General Info Date of Service: 04/05/21 Admission Dx/Problem (Free Text: Suspected Anaplasmosis infection Subjective Update: She was having no symptoms on her day of discharge. Functional Status: Reports: Tolerating Diet, Ambulating, Urinating. Denies: New Symptoms - Review of Systems General: Reports: No Symptoms. Denies: Fever, Weakness, Fatigue, Chills HEENT: Reports: No Symptoms. Denies: Headaches, Visual Changes Pulmonary: Reports: No Symptoms. Denies: Shortness of Breath, Cough Cardiovascular: Reports: No Symptoms. Denies: Chest Pain, Palpitations Gastrointestinal: Reports: No Symptoms. Denies: Abdominal Pain, Constipation, Diarrhea, Nausea, Vomiting Genitourinary: Reports: No Symptoms. Denies: Dysuria, Frequency Musculoskeletal: Reports: No Symptoms. Denies: Neck Pain, Back Pain Skin: Reports: No Symptoms Neurological: Reports: No Symptoms. Denies: Confusion, Dizziness, Headache Psychiatric: Reports: No Symptoms. Denies: Confusion - Patient Data Vitals - Most Recent: Last Vital Signs Temp 98.1 F 04/05/21 07:38 Pulse 72 04/05/21 07:38 Resp 16 04/05/21 07:38 BP 128/58 L 04/05/21 07:38 Pulse Ox 93 L 04/05/21 07:38 Weight - Most Recent: 164 lb 7.437 oz Med Orders - Current: Current Medications Discontinued Medications Acetaminophen (Acetaminophen 500 Mg Tab) 1,000 mg PO ONETIME ONE Stop: 04/03/21 18:00 Last Admin: 04/03/21 18:21 Dose: 1,000 mg Documented by: Acetaminophen (Acetaminophen 325 Mg Tab) 650 mg PO Q4H PRN PRN Reason: Pain (Mild 1-3)/fever Last Admin: 04/04/21 10:30 Dose: 650 mg Documented by: Albuterol (Albuterol 0.083% 2.5 Mg/3 Ml Neb Soln) 2.5 mg NEB Q4H PRN PRN Reason: Shortness Of Breath/wheezing Albuterol/Ipratropium (Albuterol/Ipratropium 3.0-0.5 Mg/3 Ml Neb Soln) 3 ml NEB QID PRN PRN Reason: Shortness Of Breath/wheezing Bisacodyl (Bisacodyl 5 Mg Tab) 5 mg PO DAILY PRN PRN Reason: Constipation Bupropion HCl (Bupropion 150 Mg Tab.Er) 450 mg PO DAILY ON LICENSE OF [facility] Last Admin: 04/05/21 09:34 Dose: 450 mg Documented by: Docusate Sodium (Docusate Sodium 100 Mg Cap) 100 mg PO BID PRN PRN Reason: Constipation Last Admin: 04/04/21 21:32 Dose: 100 mg Documented by: Doxycycline Hyclate (Doxycycline 100 Mg Cap) 100 mg PO ONETIME ONE Stop: 04/03/21 17:57 Last Admin: 04/03/21 18:21 Dose: 100 mg Documented by: Doxycycline Hyclate (Doxycycline 100 Mg Cap) 100 mg PO BID ON LICENSE OF [facility] Stop: 04/11/21 21:01 Last Admin: 04/05/21 09:34 Dose: 100 mg Documented by: Duloxetine HCl (Duloxetine 30 Mg Cap) 90 mg PO DAILY ON LICENSE OF [facility] Last Admin: 04/05/21 09:32 Dose: 90 mg Documented by: Enoxaparin Sodium (Enoxaparin 40 Mg/0.4 Ml Syringe) 40 mg SUBCUT DAILY ON LICENSE OF [facility] Last Admin: 04/05/21 10:35 Dose: Not Given Documented by: Guaifenesin/Dextromethorphan (Guaifenesin/Dextromethorphan 100-10 Mg/5 Ml Soln 10 Ml Cup) 5 ml PO Q4H PRN PRN Reason: Cough Hydroxychloroquine Sulfate (Hydroxychloroquine 200 Mg Tab) 200 mg PO DAILY ON LICENSE OF [facility] Last Admin: 04/05/21 09:33 Dose: 200 mg Documented by: Lactated Ringer's (Ringers, Lactated) 1,000 mls @ 1,000 mls/hr IV BOLUS ONE Stop: 04/03/21 18:13 Last Admin: 04/03/21 17:42 Dose: 1,000 mls/hr Documented by: Doxycycline Hyclate 100 mg/ (Sodium Chloride) 100 mls @ 100 mls/hr IV Q12H ON LICENSE OF [facility] Last Admin: 04/04/21 08:57 Dose: 100 mls/hr Documented by: Sodium Chloride (Normal Saline) 1,000 mls @ 125 mls/hr IV ASDIRECTED ON LICENSE OF [facility] Last Admin: 04/04/21 04:52 Dose: 125 mls/hr Documented by: Ketorolac Tromethamine (Ketorolac 30 Mg/Ml Sdv) 30 mg IVPUSH ONETIME ONE Stop: 04/03/21 17:20 Last Admin: 04/03/21 17:41 Dose: 30 mg Documented by: Ketorolac Tromethamine (Ketorolac 30 Mg/Ml Sdv) 30 mg IM Q6H PRN PRN Reason: Pain (moderate 4-6) Stop: 04/09/21 20:16 Morphine Sulfate (Morphine 2 Mg/Ml Syringe) 2 mg IVPUSH Q2H PRN PRN Reason: Pain (severe 7-10) Ondansetron HCl (Ondansetron 4 Mg Tab.Dis) 4 mg PO Q6H PRN PRN Reason: Nausea able to take PO Ondansetron HCl (Ondansetron 4 Mg/2 Ml Sdv) 4 mg IV Q4H PRN PRN Reason: Nausea/Vomiting Oxycodone HCl (Oxycodone 5 Mg Tab) 5 mg PO Q4H PRN PRN Reason: Pain (moderate 4-6) Last Admin: 04/04/21 01:35 Dose: 5 mg Documented by: Pantoprazole Sodium (Pantoprazole 40 Mg Vial) 40 mg IV BEDTIME TAIWO Last Admin: 04/04/21 20:35 Dose: 40 mg Documented by: Pantoprazole Sodium (Pantoprazole 40 Mg Tab.Cr) 40 mg PO BEDTIME TAIWO Potassium Chloride (Potassium Chloride 20 Meq Tab.Er) 20 meq PO ONETIME ONE Stop: 04/04/21 10:01 Last Admin: 04/04/21 10:30 Dose: 20 meq Documented by: Prochlorperazine Edisylate (Prochlorperazine 10 Mg/2 Ml Sdv) 5 mg IVPUSH ONETIME ONE Stop: 04/03/21 17:16 Last Admin: 04/03/21 17:42 Dose: 5 mg Documented by: Zolpidem Tartrate (Zolpidem 5 Mg Tab) 5 mg PO ONETIME ONE Stop: 04/04/21 20:55 Last Admin: 04/04/21 21:32 Dose: 5 mg Documented by: - Exam General: Reports: Alert, Oriented, Cooperative, No Acute Distress HEENT: Reports: Pupils Equal, EOMI, Mucous Membr. Moist/[place] Lungs: Reports: Clear to Auscultation, Normal Respiratory Effort Cardiovascular: Reports: Regular Rate, Regular Rhythm GI/Abdominal Exam: Normal Bowel Sounds, Soft, Non-Tender, No Distention Back Exam: Reports: Normal Inspection Extremities: Normal Inspection, Non-Tender, No Pedal Edema Skin: Reports: Warm, Dry, Intact Neurological: Reports: No New Focal Deficit Psy/Mental Status: Reports: Alert, Normal Affect, Normal Mood
== END 2021-04-05 11:30 | disposition home or self-care (01) ==
LOC: JP.ED 16:07 → JP.MS 18:45
PROVIDERS: ADMIT Internal Medicine; ATTEND Internal Medicine
DX: A77.49 Other ehrlichiosis (principal); A93.8 Other specified arthropod-borne viral fevers; Z79.899 Other long term (current) drug therapy
CPT/HCPCS: 36415; 80048; 81001; 85025; 85027; 86140; 86666; 94762; 96361; 96365; 96374; 96375; 96376; 99284; 99285-25; A9270-GY; C9113; G0378; J0780; J1885; J3490; J7030; J7120